=== PATIENT | female | born 1930 | race Caucasian/White ===

== ENCOUNTER 2017-08-15 17:37 | Inpatient (IN) | payer MEDICARE, BC ==
[2017-08-15 18:55] LABS: Hematocrit 31 % (35-47); Hemoglobin 10.3 g/dl (12.0-16.0); Mean Corpuscular HGB Conc 33 g/dl (31-36); Mean Corpuscular Hemoglobin 31 pg (27-31); Mean Corpuscular Volume 92 fL (80-97); Mean Platelet Volume 10 um3 (7.4-10.4); Red Blood Count 3.36 10^6/ul (4.0-5.4); Red Cell Distribution Width 15 % (10.5-15)
--- NOTE | 2017-08-15 19:03 | RAD ---
HISTORY: Fall, seizure COMPARISONS: November 28, 2016 TECHNIQUE: Multiple contiguous axial CT scans were obtained of the head without intravenous contrast. FINDINGS: HEMORRHAGE/INFARCT: There is no hemorrhage or acute infarct. MASSES/SHIFT: There is no mass or shift. EXTRA-AXIAL SPACES: There are no extra-axial fluid collections. SULCI AND VENTRICLES: There is diffuse and proportional enlargement of the sulci and ventricles. CEREBRUM: There is right parieto-occipital encephalomalacia consistent with remote infarct. There is hypoattenuation of the periventricular and supportive White matter BRAINSTEM: There are no focal parenchymal abnormalities. CEREBELLUM: There are no focal parenchymal abnormalities. VESSELS: The vessels are grossly normal. PARANASAL SINUSES: The paranasal sinuses are clear. ORBITS: The orbits are unremarkable. BONES AND SOFT TISSUE: No bone or soft tissue abnormalities are noted. OTHER: None IMPRESSION: NO ACUTE INTRACRANIAL PATHOLOGY. 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
[2017-08-15 19:04] LABS: BUN/Creatinine Ratio 27.9 (8-20); Calcium 10.2 mg/dL (8.6-10.3); EGFR African American 64.6 (>60); EGFR Non-African American 50.2 (>60); Globulin 5.7 g/dL (2-4); Magnesium 1.9 mg/dL (1.9-2.7); Total Bilirubin 0.3 mg/dL (0.2-1.0); Total Protein 8.7 g/dL (6.4-8.9)
--- NOTE | 2017-08-15 19:05 | RAD ---
HISTORY: Fall, seizure COMPARISONS: None TECHNIQUE: Multiple contiguous axial CT scans were obtained of the cervical spine without intravenous contrast, with coronal and sagittal multiplanar reformations. FINDINGS: BRAIN: The visualized brain is unremarkable CENTRAL CANAL: Evaluation of the central canal is limited on CT technique; however, there is no obvious canalicular mass or epidural hemorrhage. ALIGNMENT: The alignment is normal, without subluxation or dislocation. VERTEBRAL BODIES: There is diffuse osteopenia. There is no displaced fracture. JOINTS: There is diffuse facet hypertrophy. MUSCULATURE: Unremarkable INTERVERTEBRAL DISCS: There is diffuse loss of intervertebral disc height. AXIAL IMAGES: C2-C3: There is no osseous neural foraminal narrowing or central canal stenosis. C3-C4: There is no osseous neural foraminal narrowing or central canal stenosis. C4-C5: There is no osseous neural foraminal narrowing or central canal stenosis. C5-C6: There is no osseous neural foraminal narrowing or central canal stenosis. C6-C7: There is no osseous neural foraminal narrowing or central canal stenosis. C7-T1: There is no osseous neural foraminal narrowing or central canal stenosis. SOFT TISSUES: There is extensive biapical emphysematous change. The prevertebral soft tissues are normal. OTHER: None. IMPRESSION: 1. OSTEOPENIA. 2. DEGENERATIVE DISC DISEASE AND OSTEOARTHRITIS. 3. NO ACUTE OSSEOUS INJURY TO THE CERVICAL SPINE. 4. EMPHYSEMA
[2017-08-15 19:29] LABS: TSH (Thyroid Stimulating Horm) 2.85 mcIU/mL (0.34-5.60)
--- NOTE | 2017-08-15 19:47 | RAD ---
HISTORY: Left femur deformity COMPARISONS: None VIEWS: 5, frontal view the pelvis with frontal and crosstable lateral views of the left femur FINDINGS: BONE DENSITY: There is diffuse osteopenia. BONES: The patient is status post bilateral hip arthroplasty. There is a displaced periprosthetic fracture of the left femur with anterior angulation and lateral displacement. JOINTS: The patient is status post bilateral hip arthroplasty ALIGNMENT: There is no dislocation. SOFT TISSUES: Unremarkable. OTHER FINDINGS: None. IMPRESSION: 1. ANGULATED AND DISPLACED PERIPROSTHETIC FRACTURE OF THE LEFT FEMORAL DIAPHYSIS. 2. OSTEOPENIA. 3. STATUS POST BILATERAL HIP ARTHROPLASTY.
--- NOTE | 2017-08-15 19:49 | RAD ---
HISTORY: Left femur fracture COMPARISONS: None VIEWS: 2, Frontal and lateral views of the left knee FINDINGS: BONE DENSITY: There is diffuse osteopenia. BONES: There is no displaced fracture. JOINTS: There is mild medial and patellofemoral osteophytes. ALIGNMENT: There is no dislocation. SOFT TISSUES: Unremarkable. OTHER FINDINGS: None. IMPRESSION: OSTEOPENIA. NO ACUTE OSSEOUS INJURY. IF SYMPTOMS PERSIST, RECOMMEND REPEAT IMAGING.
--- NOTE | 2017-08-15 19:51 | ED ---
Magdy Durant Angela, scribed for Seven Monahan MD on 08/15/17 at 1759 . Lower Extremity - HPI Summary HPI Summary: This pt is a 87 y/o female [facility] c/o left upper leg pain s/p injury from falling. Pt reports that she does not remember falling today. Pt has a PMHx of seizure and is currently on seizure medications. Pt denies knee pain, left foot pain, abd pain, back pain, neck pain. She states her neurologist is Dr. Romero. Per EMS, pt's son reports that the pt was walking and probably had a seizure that caused her to fall. EMS applied a traction splint on the LLE TOWER HAND. - History of Current Complaint Chief Complaint: EDExtremityLower Stated Complaint: LT LEG INJURY Hx Obtained From: Patient Mechanism Of Injury: Fall From A Standing Position Onset/Duration: Still Present Pain Intensity: 0 Timing: Lasting Hours Location: Is Discrete @ - left upper leg Associated Signs And Symptoms: Negative: Knee Pain Aggravating Factor(s): Ambulation, Movement Alleviating Factor(s): Rest - Allergies/Home Medications Allergies/Adverse Reactions: Allergies Allergy/AdvReac Type Severity Reaction Status Date / Time Eggs or Egg-derived Products Allergy Intermediate GI Upset Verified 08/15/17 17: 51 Home Medications: Home Medications Digoxin TAB* [Lanoxin TAB*] 0.125 mg PO EVERY OTHER DAY 08/15/17 [History Confirmed 08/15/17] Digoxin TAB* [Lanoxin TAB*] 0.25 mg PO EVERY OTHER DAY 08/15/17 [History Confirmed 08/15/17] PMH/Surg Hx/FS Hx/Imm Hx Endocrine/Hematology History: Denies: Hx Diabetes Cardiovascular History: Reports: Hx Hypercholesterolemia, 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 pacer placement. cataract extraction. bilateral TKA Infectious Disease History: No Infectious Disease History: Denies: Traveled Outside the [place] in Last 30 Days - Family History Known Family History: Positive: Hypertension - Social History Alcohol Use: Unable to confirm Hx Substance Use: No Substance Use Type: Reports: None Hx Tobacco Use: Yes Smoking Status (MU): Former Smoker Review of Systems Negative: Fever, Chills Negative: Abdominal Pain Musculoskeletal: Other - left upper leg Negative: Other - back pain, neck pain, left foot pain Neurological: Other - possible seizure, per pt's son All Other Systems Reviewed And Are Negative: Yes Physical Exam - Summary Physical Exam Summary: Appearance: Well-appearing, Well-nourished. No acute distress. Skin: Warm Eyes: Normal. EOMI. ENT: Normal. No evidence of lateral tongue lesions. Neck: Supple, nontender. No midline cervical tenderness. Respiratory: Clear to auscultation. Normal lungs sounds. Cardiovascular: Normal heart sounds. Normal pulses in radial area bilaterally. Abdomen: Soft, nontender. Bowel: Present Musculoskeletal: tractor splint applied to the left lower extremity from the hip downward. There is no hip tenderness. Tenderness to palpation of the left femur. No tenderness to palpation of the left ankle and knee. Normal capillary refill to toes bilaterally. Neurological: Normal. Alert and oriented to self and place, not to time. Psychiatric: Normal Triage Information Reviewed: Yes Vital Signs On Initial Exam: Initial Vitals Temp Pulse Resp BP Pulse Ox 98.4 F 74 16 135/87 94 08/15/17 17:45 08/15/17 17:45 08/15/17 17:45 08/15/17 17:45 08/15/17 17:45 Vital Signs Reviewed: Yes Diagnostics - Vital Signs Vital Signs Temp Pulse Resp BP Pulse Ox 08/15/17 17:45 98.4 F 74 16 135/87 94 - Laboratory Lab Results: Lab Results 08/15/17 08/15/17 08/15/17 Range/Units 18:28 18:28 18:28 WBC 8.0 (3.5-10.8) 10^3/ul RBC 3.36 L (4.0-5.4) 10^6/ul Hgb 10.3 L (12.0-16.0) g/dl Hct 31 L (35-47) % MCV 92 (80-97) fL MCH 31 (27-31) pg MCHC 33 (31-36) g/dl RDW 15 (10.5-15) % Plt Count 173 (150-450) 10^3/ul MPV 10 (7.4-10.4) um3 Neut % (Auto) 80.9 (38-83) % Lymph % (Auto) 13.0 L (25-47) % Stark % (Auto) 4.9 (1-9) % Eos % (Auto) 0.7 (0-6) % Baso % (Auto) 0.5 (0-2) % Absolute Neuts (auto) 6.5 (1.5-7.7) 10^3/ul Absolute Lymphs (auto) 1.0 (1.0-4.8) 10^3/ul Absolute Monos (auto) 0.4 (0-0.8) 10^3/ul Absolute Eos (auto) 0.1 (0-0.6) 10^3/ul Absolute Basos (auto) 0 (0-0.2) 10^3/ul Absolute Nucleated RBC 0.02 10^3/ul Nucleated RBC % 0.2 INR (Anticoag Therapy) 0.91 (0.89-1.11) APTT 25.1 L (26.0-36.3) seconds Sodium 132 L (133-145) mmol/L Potassium 5.0 (3.5-5.0) mmol/L Chloride 104 (101-111) mmol/L Carbon Dioxide 26 (22-32) mmol/L Anion Gap 2 (2-11) mmol/L BUN 29 H (6-24) mg/dL Creatinine 1.04 H (0.51-0.95) mg/dL Est GFR ( Amer) 64.6 (>60) Est GFR (Non-Af Amer) 50.2 (>60) BUN/Creatinine Ratio 27.9 H (8-20) Glucose 104 H (70-100) mg/dL Lactic Acid (0.5-2.0) mmol/L Calcium 10.2 (8.6-10.3) mg/dL Magnesium 1.9 (1.9-2.7) mg/dL Total Bilirubin 0.30 (0.2-1.0) mg/dL AST 24 (13-39) U/L ALT 14 (7-52) U/L Alkaline Phosphatase 54 (34-104) U/L Total Protein 8.7 (6.4-8.9) g/dL Albumin 3.0 L (3.2-5.2) g/dL Globulin 5.7 H (2-4) g/dL Albumin/Globulin Ratio 0.5 L (1-3) TSH 2.85 (0.34-5.60) mcIU/mL Valproic Acid 30.0 L (50-100) mcg/mL 08/15/17 Range/Units 18:28 WBC (3.5-10.8) 10^3/ul RBC (4.0-5.4) 10^6/ul Hgb (12.0-16.0) g/dl Hct (35-47) % MCV (80-97) fL MCH (27-31) pg MCHC (31-36) g/dl RDW (10.5-15) % Plt Count (150-450) 10^3/ul MPV (7.4-10.4) um3 Neut % (Auto) (38-83) % Lymph % (Auto) (25-47) % Stark % (Auto) (1-9) % Eos % (Auto) (0-6) % Baso % (Auto) (0-2) % Absolute Neuts (auto) (1.5-7.7) 10^3/ul Absolute Lymphs (auto) (1.0-4.8) 10^3/ul Absolute Monos (auto) (0-0.8) 10^3/ul Absolute Eos (auto) (0-0.6) 10^3/ul Absolute Basos (auto) (0-0.2) 10^3/ul Absolute Nucleated RBC 10^3/ul Nucleated RBC % INR (Anticoag Therapy) (0.89-1.11) APTT (26.0-36.3) seconds Sodium (133-145) mmol/L Potassium (3.5-5.0) mmol/L Chloride (101-111) mmol/L Carbon Dioxide (22-32) mmol/L Anion Gap (2-11) mmol/L BUN (6-24) mg/dL Creatinine (0.51-0.95) mg/dL Est GFR ( Amer) (>60) Est GFR (Non-Af Amer) (>60) BUN/Creatinine Ratio (8-20) Glucose (70-100) mg/dL Lactic Acid 0.9 (0.5-2.0) mmol/L Calcium (8.6-10.3) mg/dL Magnesium (1.9-2.7) mg/dL Total Bilirubin (0.2-1.0) mg/dL AST (13-39) U/L ALT (7-52) U/L Alkaline Phosphatase (34-104) U/L Total Protein (6.4-8.9) g/dL Albumin (3.2-5.2) g/dL Globulin (2-4) g/dL Albumin/Globulin Ratio (1-3) TSH (0.34-5.60) mcIU/mL Valproic Acid (50-100) mcg/mL Result Diagrams: 08/15/17 18:28 08/15/17 18:28 Lab Statement: Any lab studies that have been ordered have been reviewed, and results considered in the medical decision making process. - Radiology Left femur XR Radiology Interpretation Completed By: Radiologist - pending official report from radiologist, please see [facility]. Pelvis XR Radiology Interpretation Completed By: Radiologist - pending official report from radiologist, please see [facility]. - CT CT Brain CT Interpretation: Positive (See Comments) - IMPRESSION: No acute intracranial pathology. Diffuse involutional change with chronic small vessel ischemic changes, and evidence of remote infarcts of the right parietal and occipital lobes. ED physician has reviewed this radiology report and agrees. CT Interpretation Completed By: Radiologist Cervical spine CT CT Interpretation: Positive (See Comments) - IMPRESSION: 1. Osteopenia. 2. Degenerative disc disease and osteoarthritis. 3. No acute osseous injury to the cervical spine. 4. Emphysema. ED physician has reviewed this radiology report and agrees. CT Interpretation Completed By: Radiologist Lower Extremity Course/Dx - Diagnoses Provider Diagnoses: Closed femur fracture - Physician Notifications Discussed Care Of Patient With: Jaylen Staley Time Discussed With Above Provider: 19:25 Instructed by Provider To: Other - I discussed the pt's case with Dr. Staley, orthopedist. [[id number]] I spoke with Dr. Arreola, hospitalist, and he has agreed to admit the pt. Discharge - Discharge Plan Condition: Stable Disposition: ADMITTED TO [facility] Referrals: Christa Ardon MD [Primary Care Provider] - The documentation as recorded by the Magdy parker Angela accurately reflects the service I personally performed and the decisions made by me, Seven Monahan MD.
[2017-08-15] MEDS ORDERED: Morphine INJ* 4 MG/ML 1 ML CARPUJECT IV ONE (20:16)
[2017-08-15] MEDS ORDERED: Ondansetron INJ* 2 MG/ML VIAL IV ONE (20:16)
[2017-08-15 20:30] LABS: Digoxin 0.9 ng/ml (0.8-2.0)
--- NOTE | 2017-08-15 20:50 | PN ---
Progress Note - Progress Note Date of Service: 08/15/17 Note: Ms. Nieves has a displaced periprosthetic femur fracture. The implant was [place] [address] Miguel Garíca. The implant looks stable and it looks like she fractured at the distal aspect of the stem. This will need surgery to stabilize the femur with a plate and screws. She is being admitted to the medical service and we'll do the surgery when she is medically optimized.
[2017-08-15] MEDS ORDERED: Ondansetron INJ* 2 MG/ML VIAL IV PRN (21:08)
[2017-08-15] MEDS ORDERED: oxyCODONE TAB* 5 MG TAB PO PRN (21:13)
[2017-08-15] MEDS ORDERED: Morphine INJ* 2 MG/ML 1 ML SYRINGE (TWO MG - NEW SYRINGE VERSION) IV PRN (21:13)
[2017-08-15] MEDS ORDERED: Valproic Acid IV(*) 500 MG in NS 0.9% 100 ML* 100 ML IVPB ONE (21:14)
[2017-08-15 21:47] LABS: Urine Bacteria 1+ (Absent); Urine Bilirubin Negative (Negative); Urine Glucose Negative (Negative); Urine Nitrite Negative (Negative)
--- NOTE | 2017-08-15 22:54 | HP ---
CC: Dr. Ardon * HISTORY AND PHYSICAL: DATE OF ADMISSION: 08/15/17 PRIMARY CARE PHYSICIAN: Dr. Ardon. CHIEF COMPLAINT: Fall, left-sided leg pain. HISTORY OF PRESENT ILLNESS: Ms. Nieves is an 87-year-old female with past medical history of seizure disorder, stroke, tachybrady syndrome with pacemaker placement, AFib not currently on anticoagulation, who presents to the hospital after a fall that was unwitnessed at home. History is limited from the patient as she likely has some underlying cognitive impairment. She states what she remembers is waking up this morning, getting up, getting dressed, walking into the kitchen. She recalls her son telling her to sit down and he would get her some food. She states the next thing she remembers she was on the ground with left leg pain and was unable to get up. She does not recall having any chest pain, shortness of breath, dizziness, fever, or chills recently. Denies any headache at this time. Does not think that she struck her head. She states she has a history of seizure disorder, cannot recall the last time she had a seizure. Unfortunately, I was unable to get in touch with the son to get the story from his perspective. However, Dr. Monahan in the emergency department mentioned that the son was concerned that the patient may have had a seizure, although again it does not seem that he witnessed her fall. In the emergency department, the patient was found to have a left periprosthetic fracture. Dr. Staley was consulted who will evaluate the patient in the morning and asked the hospitalist service to admit. PAST MEDICAL HISTORY: Seizure disorder, CVA, tachybrady syndrome with pacemaker placement, AFib not on anticoagulation apparently due to her seizure disorder. PAST SURGICAL HISTORY: Pacemaker placement, left total hip arthroplasty. HOME MEDICATIONS: 1. Depakote 500 mg by mouth 2 times daily. 2. Digoxin 0.25 mg alternating every other day with 0.125 mg. 3. Atenolol 12.5 mg in the morning and 25 mg by mouth at night. 4. Aspirin 81 mg by mouth daily. ALLERGIES: Patient has allergies to eggs or egg derived products. FAMILY HISTORY: Patient is unable to provide. SOCIAL HISTORY: Patient apparently has a long smoking history. Lives at home with her son. PHYSICAL EXAMINATION GENERAL: The patient is an elderly, frail appearing female, lying in bed, in no apparent distress. VITAL SIGNS: On admission, temperature 98.4, heart rate of 74, respiratory rate of 16, O2 saturation 94% on room air, blood pressure 135/87. HEENT: Head: Normocephalic, atraumatic. Eyes: Pupils equal, round, and reactive to light and accommodation. Anicteric sclerae. ENT: Dry mucous membranes. No cervical adenopathy. LUNGS: Clear to auscultation bilaterally. No wheezes, rales, or rhonchi. CARDIOVASCULAR: Regular rate and rhythm. S1 and S2 present. No murmurs, gallops, or rubs. ABDOMEN: Soft, nontender, nondistended. Bowel sounds positive. EXTREMITIES: No cyanosis, clubbing, or edema. Left lower extremity with a knee immobilizer in place. NEUROLOGIC: Patient is alert and oriented to self and hospital, told me that it was 2003, did note the month was August. No focal neurological deficits. DIAGNOSTIC STUDIES: EKG personally reviewed shows paced rhythm. CT of the brain shows no acute abnormalities but remote infarcts of the right parietal and occipital lobes. CT of the C-spine shows degenerative disk disease and osteopenia. No fractures. Pelvic x-ray shows an angulated and displaced periprosthetic fracture of the left femur. ASSESSMENT AND PLAN: Fall with left femur fracture and possible seizure in an 87- year-old female with a past medical history of seizure disorder, cerebrovascular accident, tachybrady syndrome with pacemaker placement and atrial fibrillation not currently on anticoagulation. 1. Fall, femur fracture. X-ray shows an angulated and displaced periprosthetic fracture. The patient has an immobilizer in place right now. The patient has no concerning EKG changes. No history of diabetes, congestive heart failure. The last echocardiogram we have on file showed some mild-to- moderate mitral and tricuspid regurgitation with a preserved EF. I do not think that the patient needs any additional testing prior to proceeding with surgery. We will write for analgesia and some light IV fluids overnight. We will make the patient n.p.o. after midnight. Dr. Staley was contacted by Dr. Monahan in the ED and will evaluate the patient in the morning. 2. Seizure disorder. It is unclear if the patient had a seizure. She seems alert and oriented at this time. Her valproic acid level is low at 30. I have a page out to Dr. Romero. For now, we will keep her on her Depakote 500 mg by mouth 2 times daily and give an additional 500 mg dose by IV right now. We will recheck a level in the morning. 3. History of cerebrovascular accident. Continue the patient on aspirin. 4. Atrial fibrillation. The patient is currently paced. We will continue beta - tamera and digoxin. Monitor the patient on telemetry. 5. DVT prophylaxis. Heparin subcu. 6. Code status. The patient is a DNR/DNI. This will need to be reversed for surgery. TIME SPENT: Total time spent on this admission, 50 minutes, with over half the time was spent [id number] with the patient in counseling and coordinating care. [id number]/[facility] #: [id number] HIGINIO
[2017-08-15] MEDS: NS 0.9% 1000 ML* 1,000 ML IV SCH (23:29)
[2017-08-15] MEDS: Heparin VIAL(*) 5000 UNITS/ML VIAL (FIVE THOUSAND) SUBCUT SCH (23:39)
[2017-08-15] MEDS: Divalproex DR TAB(*) 250 MG PO SCH (23:42)
[2017-08-16 05:02] LABS: Hematocrit 27 % (35-47); Mean Corpuscular HGB Conc 34 g/dl (31-36); Mean Corpuscular Hemoglobin 31 pg (27-31); Mean Corpuscular Volume 93 fL (80-97); Mean Platelet Volume 10 um3 (7.4-10.4); Red Cell Distribution Width 14 % (10.5-15); White Blood Count 7.9 10^3/ul (3.5-10.8)
[2017-08-16 05:18] LABS: BUN/Creatinine Ratio 26.2 (8-20); Calcium 9.5 mg/dL (8.6-10.3); EGFR African American 51.8 (>60); EGFR Non-African American 40.3 (>60)
[2017-08-16 05:23] LABS: Potassium 5.2 mmol/L (3.5-5.0)
[2017-08-16] MEDS: Heparin VIAL(*) 5000 UNITS/ML VIAL (FIVE THOUSAND) SUBCUT SCH ×3 (06:29→21:21)
[2017-08-16] MEDS ORDERED: Atenolol TAB* 25 MG PO SCH (09:00)
[2017-08-16] MEDS: Divalproex DR TAB(*) 250 MG PO SCH ×2 (09:23→21:19)
[2017-08-16] MEDS: Acetaminophen TAB* 325 MG PO PRN ×3 (09:24→21:23)
[2017-08-16] MEDS: Aspirin EC Low Dose* 81 MG TAB.EC PO SCH (09:24)
[2017-08-16] MEDS ORDERED: Insulin REGULAR(*) 1 UNITS UNIT IV PUSH ONE (09:45)
[2017-08-16] MEDS ORDERED: Dextrose 50% Syringe 50 ML* 25 GM/50 ML SYRINGE IV PUSH PRN (09:45)
[2017-08-16] MEDS: Atenolol TAB* 25 MG PO SCH ×2 (09:55→18:02)
[2017-08-16] MEDS ORDERED: Dextrose 50% Syringe 50 ML* 25 GM/50 ML SYRINGE IV PUSH ONE (09:58)
--- NOTE | 2017-08-16 09:59 | PN ---
Subjective Date of Service: 08/16/17 Interval History: Pt is feeling ok. She is upset she doesn't get food yet. She denies any pain at this time. No SOB. Objective Active Medications: Acetaminophen (Tylenol Tab*) 650 mg PO Q4H PRN PRN Reason: Mild Pain Last Admin: 08/16/17 09:24 Dose: 650 mg Aspirin (Aspirin Ec Low Dose*) 81 mg PO DAILY [facility] Last Admin: 08/16/17 09:24 Dose: 81 mg Atenolol (Tenormin Tab*) 25 mg PO QPM [facility] Atenolol (Tenormin Tab*) 12.5 mg PO QAM [facility] Last Admin: 08/16/17 09:55 Dose: Not Given Dextrose (D50w Syringe 50 Ml*) 25 gm IV PUSH ONCE PRN PRN Reason: FS < 60 Digoxin (Lanoxin Tab*) 0.25 mg PO EVERY OTHER DAY@1700 [facility] Digoxin (Lanoxin Tab*) 0.125 mg PO EVERY OTHER DAY@1700 [facility] Divalproex Sodium (Depakote Dr Tab(*)) 500 mg PO BID [facility] Last Admin: 08/16/17 09:23 Dose: 500 mg Heparin Sodium (Porcine) (Heparin Vial(*)) 5,000 units SUBCUT Q8HR [facility] Last Admin: 08/16/17 06:29 Dose: 5,000 units Sodium Chloride (Ns 0.9% 1000 Ml*) 1,000 mls @ 75 mls/hr IV PER RATE [facility] Last Admin: 08/15/17 23:29 Dose: 75 mls/hr Morphine Sulfate (Morphine Inj (Syringe)*) 2 mg IV Q2H PRN PRN Reason: SEVERE PAIN Ondansetron HCl (Zofran Inj*) 4 mg IV Q4H PRN PRN Reason: NAUSEA/VOMITING Oxycodone HCl (Roxycodone Tab*) 2.5 mg PO Q4H PRN PRN Reason: PAIN Vital Signs 08/15/17 08/15/17 08/15/17 21:33 22:00 22:13 Temperature Pulse Rate 60 59 64 Respiratory Rate Blood Pressure 105/56 116/61 (mmHg) O2 Sat by Pulse 94 96 96 Oximetry 08/15/17 08/15/17 08/15/17 22:30 23:00 23:01 Temperature Pulse Rate 61 63 68 Respiratory 17 18 15 Rate Blood Pressure 106/61 112/56 (mmHg) O2 Sat by Pulse 97 94 95 Oximetry 08/15/17 08/15/17 08/16/17 23:05 23:20 00:03 Temperature 98.2 F 96.6 F 96.6 F Pulse Rate 67 67 Respiratory 20 20 Rate Blood Pressure 112/64 112/64 (mmHg) O2 Sat by Pulse 96 96 Oximetry 08/16/17 08/16/17 08/16/17 00:19 04:19 07:14 Temperature 99.0 F Pulse Rate 67 61 Respiratory 20 14 14 Rate Blood Pressure 112/86 109/48 (mmHg) O2 Sat by Pulse 98 93 Oximetry 08/16/17 08/16/17 08/16/17 07:55 08:11 09:24 Temperature 97.8 F Pulse Rate 63 61 58 Respiratory Rate Blood Pressure 114/52 109/48 (mmHg) O2 Sat by Pulse 100 93 Oximetry 08/16/17 08/16/17 09:48 09:53 Temperature 98.1 F Pulse Rate 60 Respiratory Rate Blood Pressure 106/45 (mmHg) O2 Sat by Pulse 98 Oximetry Oxygen Devices in Use Now: Nasal Cannula - 2L Appearance: Elderly thin female sitting up in bed, NAD Eyes: No Scleral Icterus Ears/Nose/Mouth/Throat: Mucous Membranes Moist Respiratory: Symmetrical Chest Expansion and Respiratory Effort, Clear to Auscultation - few crackles RLL Cardiovascular: NL Sounds; No Murmurs; No JVD, RRR, No Edema Abdominal: NL Sounds; No Tenderness; No Distention Extremities: No Clubbing, Cyanosis, - - L LE shortened and externally rotated, in knee immobilizer Skin: No Rash or Ulcers, No Nodules or Sclerosis Neurological: - - slightly confused (stated left room but it was her son ), oriented to situation Result Diagrams: 08/16/17 04:39 08/16/17 04:39 Additional Lab and Data: Lab Results 08/15/17 08/15/17 08/15/17 Range/Units 18:28 18:28 18:28 WBC 8.0 (3.5-10.8) 10^3/ul RBC 3.36 L (4.0-5.4) 10^6/ul Hgb 10.3 L (12.0-16.0) g/dl Hct 31 L (35-47) % MCV 92 (80-97) fL MCH 31 (27-31) pg MCHC 33 (31-36) g/dl RDW 15 (10.5-15) % Plt Count 173 (150-450) 10^3/ul MPV 10 (7.4-10.4) um3 Neut % (Auto) 80.9 (38-83) % Lymph % (Auto) 13.0 L (25-47) % Castro % (Auto) 4.9 (1-9) % Eos % (Auto) 0.7 (0-6) % Baso % (Auto) 0.5 (0-2) % Absolute Neuts (auto) 6.5 (1.5-7.7) 10^3/ul Absolute Lymphs (auto) 1.0 (1.0-4.8) 10^3/ul Absolute Monos (auto) 0.4 (0-0.8) 10^3/ul Absolute Eos (auto) 0.1 (0-0.6) 10^3/ul Absolute Basos (auto) 0 (0-0.2) 10^3/ul Absolute Nucleated RBC 0.02 10^3/ul Nucleated RBC % 0.2 INR (Anticoag Therapy) 0.91 (0.89-1.11) APTT 25.1 L (26.0-36.3) seconds Sodium 132 L (133-145) mmol/L Potassium 5.0 (3.5-5.0) mmol/L Chloride 104 (101-111) mmol/L Carbon Dioxide 26 (22-32) mmol/L Anion Gap 2 (2-11) mmol/L BUN 29 H (6-24) mg/dL Creatinine 1.04 H (0.51-0.95) mg/dL Est GFR ( Amer) 64.6 (>60) Est GFR (Non-Af Amer) 50.2 (>60) BUN/Creatinine Ratio 27.9 H (8-20) Glucose 104 H (70-100) mg/dL Lactic Acid (0.5-2.0) mmol/L Calcium 10.2 (8.6-10.3) mg/dL Magnesium 1.9 (1.9-2.7) mg/dL Total Bilirubin 0.30 (0.2-1.0) mg/dL AST 24 (13-39) U/L ALT 14 (7-52) U/L Alkaline Phosphatase 54 (34-104) U/L Total Protein 8.7 (6.4-8.9) g/dL Albumin 3.0 L (3.2-5.2) g/dL Globulin 5.7 H (2-4) g/dL Albumin/Globulin Ratio 0.5 L (1-3) TSH 2.85 (0.34-5.60) mcIU/mL Valproic Acid 30.0 L (50-100) mcg/mL 08/15/17 Range/Units 18:28 WBC (3.5-10.8) 10^3/ul RBC (4.0-5.4) 10^6/ul Hgb (12.0-16.0) g/dl Hct (35-47) % MCV (80-97) fL MCH (27-31) pg MCHC (31-36) g/dl RDW (10.5-15) % Plt Count (150-450) 10^3/ul MPV (7.4-10.4) um3 Neut % (Auto) (38-83) % Lymph % (Auto) (25-47) % Castro % (Auto) (1-9) % Eos % (Auto) (0-6) % Baso % (Auto) (0-2) % Absolute Neuts (auto) (1.5-7.7) 10^3/ul Absolute Lymphs (auto) (1.0-4.8) 10^3/ul Absolute Monos (auto) (0-0.8) 10^3/ul Absolute Eos (auto) (0-0.6) 10^3/ul Absolute Basos (auto) (0-0.2) 10^3/ul Absolute Nucleated RBC 10^3/ul Nucleated RBC % INR (Anticoag Therapy) (0.89-1.11) APTT (26.0-36.3) seconds Sodium (133-145) mmol/L Potassium (3.5-5.0) mmol/L Chloride (101-111) mmol/L Carbon Dioxide (22-32) mmol/L Anion Gap (2-11) mmol/L BUN (6-24) mg/dL Creatinine (0.51-0.95) mg/dL Est GFR ( Amer) (>60) Est GFR (Non-Af Amer) (>60) BUN/Creatinine Ratio (8-20) Glucose (70-100) mg/dL Lactic Acid 0.9 (0.5-2.0) mmol/L Calcium (8.6-10.3) mg/dL Magnesium (1.9-2.7) mg/dL Total Bilirubin (0.2-1.0) mg/dL AST (13-39) U/L ALT (7-52) U/L Alkaline Phosphatase (34-104) U/L Total Protein (6.4-8.9) g/dL Albumin (3.2-5.2) g/dL Globulin (2-4) g/dL Albumin/Globulin Ratio (1-3) TSH (0.34-5.60) mcIU/mL Valproic Acid (50-100) mcg/mL Assess/Plan/Problems-Billing Ms Nieves is an 87 yo F who has a h/o afib (not on anticoagulation), seizure disorder and likely mild cognitive impairment who presented to the ER after falling at home and was found to have a left periprosthetic femur fracture. - Patient Problems (1) Periprosthetic fracture of shaft of femur Current Visit: Yes Status: Acute Code(s): M97.8XXA - PERIPROSTH FRACTURE AROUND OTHER INTERNAL PROSTH JOINT, INIT; Z96.649 - PRESENCE OF UNSPECIFIED ARTIFICIAL HIP JOINT SNOMED Code(s): 164890217 Comment: The patient was seen by Dr. Staley last evening. She will need surgery and is medically optimized and ready to go today. Continue pain control. She will likely need STR prior to going back home. (2) Hyperkalemia Current Visit: Yes Status: Acute Code(s): E87.5 - HYPERKALEMIA SNOMED Code (s): 31135739 Comment: Likely related to slightly worsened renal function. I have ordered K50 and regular insulin 10 units IV to treat the hyperkalemia. Continue IVF hydration. (3) JOLENE (acute kidney injury) Current Visit: Yes Status: Acute Code(s): N17.9 - ACUTE KIDNEY FAILURE, UNSPECIFIED SNOMED Code(s): 70152752 Comment: Creatinine actually slightly worse today than yesterday. She did not eat/drink anything since yesterday around 2pm. She had hyaline casts in her urine which is likely related to volume depletion. Will get follow up labs this evening. (4) Seizure disorder Current Visit: Yes Status: Acute Code(s): G40.909 - EPILEPSY, UNSP, NOT INTRACTABLE, WITHOUT STATUS EPILEPTICUS SNOMED Code(s): 289917331 Comment: Continue depakote. (5) Paroxysmal a-fib Current Visit: Yes Status: Chronic Code(s): I48.0 - PAROXYSMAL ATRIAL FIBRILLATION SNOMED Code(s): 512817645 Comment: Currently in NSR. Pt has pacer. Continue digoxin. Hold parameters placed on atenolol. Pt is not on anticoagulation at baseline. (6) Hypertension Current Visit: Yes Status: Chronic Code(s): I10 - ESSENTIAL (PRIMARY) HYPERTENSION SNOMED Code(s): 62698225 Comment: SBP 110s-120s. Continue atenolol. (7) DVT prophylaxis Current Visit: Yes Status: Acute Code(s): PGV7699 - SNOMED Code(s): 727993505 Comment: SQ heparin (8) DNR (do not resuscitate) Current Visit: Yes Status: Chronic
[2017-08-16] MEDS ORDERED: Dextrose 50% VIAL 50 ml IV PUSH ONE (10:10)
--- NOTE | 2017-08-16 11:25 | RAD ---
INDICATION: Hypoxia. COMPARISON: Comparison is made with a prior chest x-ray study from June 12, 2016. TECHNIQUE: A portable view of the chest was obtained. FINDINGS: There is a dual-chamber has been are present. The heart appears mildly enlarged and unchanged from the prior exam. There is mild prominence of the interstitial markings with more focal infiltrate at the right lung base suggestive of pneumonia. IMPRESSION: RIGHT BASILAR INFILTRATE MOST CONSISTENT WITH PNEUMONIA. RECOMMEND FOLLOW-UP CHEST X-RAYS TO RESOLUTION.
--- NOTE | 2017-08-16 11:53 | HP ---
Amended report to enter cosigning physician on report. DATE OF ADMISSION: 08/15/2017. This is a preoperative exam. Dr. Staley will be operating when patient is medically optimized. ATTENDING SURGEON: Dr. Jaylen Staley* (dictated by BHARGAV Bill). CHIEF COMPLAINT: Displaced periprosthetic femur fracture on the left side. HISTORY OF PRESENT ILLNESS: Ms. Nieves is an 87-year-old female brought in by ambulance to [facility] ED on 08/15/17 complaining of left upper leg / hip pain after falling. Fall occurred at home likely due to seizure as reported by her son. He did not witness, but did hear her fall. The patient does not remember the fall herself. She does have a past medical history of seizures and is on seizure medication, generally well-controlled. Her last seizure was one month ago. Her neurologist is Dr. Romero. She was seen By Orthopedic Surgeon Dr. Staley who confirmed a left periprosthetic femur fracture at the distal aspect of the stem with implant appearing stable. Implant [place] [address] Miguel García. Today, she denies any hip pain, leg pain, knee pain, and back pain. She denies any loss of sensation. The patient has had three previous hip fractures due to falls, one on the right and two on the left, all of which were uncomplicated. She has no clotting or excessive bleeding history. She takes aspirin but no other anticoagulant at home , she is currently on heparin. 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 She does have a history of seizures. Had two strokes within the past two years with no residual symptoms. PAST SURGICAL HISTORY: Appendectomy; pacemaker placement; cataract extraction; bilateral total knee replacement; one right hip surgery, two left hip surgeries , son and patient unsure of the exact procedure. MEDICATIONS: 1. Aspirin 81 mg p.o. daily. 2. Atenolol 25 mg q.p.m. 3. Atenolol 12.5 mg q.a.m. 4. Depakote DR 250 mg, take 500 mg p.o. b.i.d. 5. Digoxin 0.25 mg every other day. 6. Digoxin 0.125 mg every other day. 7. For pain, she is also taking acetaminophen 650 mg p.o. q.4 hours prn, Morphine Sulfate 2 mg IV q.2 hours prn, Oxycodone 2.5 mg q.4 hours prn. 8. Zofran 4 mg IV q.4 hours prn. 9. Heparin 5000 units subcu q.8 hours. Today her Atenolol was held due to a low blood pressure. ALLERGIES: The patient denies any allergies. Chart confirms EGG ALLERGY with reaction of GI upset. FAMILY HISTORY: Positive only for hypertension. SOCIAL HISTORY: The patient does not drink alcohol. She does not use drugs. She is a former smoker, but no longer smokes. REVIEW OF SYSTEMS: General: The patient denies fevers and chills. Has no known anesthesia problems and has had multiple surgeries. HEENT: Denies any headaches, dizziness, lightheadedness. Cardiothoracic: Negative for chest pain , negative for edema, negative for irregular beats. Has a pacemaker. Pulmonary : Negative for shortness of breath, asthma or COPD. GI: No nausea, vomiting, diarrhea; does have a history of GERD. : No urinary frequency, no urinary dysuria. Musculoskeletal: No back pain, no knee pain. Does not complain of current left hip pain. Does have a history of multiple hip fractures, one right now, two hip fractures on the left, one femur fracture on the left. Neuro : No paresthesias or numbness; does have a history of stroke, does have a history of seizures. Integumentary: No rashes or lesions. Endocrine: No diabetes, no thyroid issues. Hematology: No history of blood clots or excessive bleeding. PHYSICAL EXAMINATION GENERAL: Alert and oriented 87-year-old in no acute distress. She has an appropriate mood and affect. She communicates well. VITAL SIGNS: Temperature 98.1, pulse rate 60, oxygen saturation 98, blood pressure 106/45. HEENT: Normocephalic, atraumatic. The patient is hard of hearing. Has few teeth, no dentures. CARDIO: Regular rate and rhythm, S1, S2. No murmur. The patient does have a pacemaker. No pedal edema. PULMONARY: Normal effort of breathing. No obvious wheezes, rales or rhonchi. MUSCULOSKELETAL: Left lower extremity it shortened and externally rotated. Immobilizer in place. The patient has good dorsiflexion and plantarflexion bilaterally. She has an obvious deformity of the left proximal femur. NEUROLOGIC: Sensation is intact distally in the left lower extremity to light touch. VASCULAR: The patient has 2+ dorsalis pedis and posterior tibial pulses bilaterally, negative Obinna's sign bilaterally. Brisk capillary refill to toes bilaterally. PSYCHIATRIC: Normal affect. Carries on appropriate conversation IMPRESSION: Left periprosthetic femur fracture. PLAN: Surgical stabilization of left periprosthetic femur fracture with plates and screws by Dr. Staley. The patient has been seen and cleared for surgery by the Hospitalist team. A chest x-ray has been done showing possible RLL infiltrate. Her potassium and creatinine have become mildly elevated. Upon discussion with Dr. Staley he would prefer to postpone surgery until patient is medically optimized. Her pneumonia will be treated with antibiotics, she will be fluids resuscitated. We are hopeful her potassium, creatinine, volume status and pneumonia may improve prior to patient being brought to the OR. The patient's son, Ed was present and able to talk with me to help to complete this H&P and confirm history. TANYA SCOTT, BHARGAV [id number]/CPS #: [id number] I saw Ms. Nieves yesterday together with Tanya Scott. I spoke with Dr. Villa. There is a question of whether she has a pneumonia and her Cr has elevated slightly. She got blood yesterday as well. She is going to be further medically optimized. We will monitor how she is doing over the next couple of days and if she stablizes and is doing well from a medical standpoint we will stabilize the femur. HIGINIO
[2017-08-16] MEDS: NS 0.9% 1000 ML* 1,000 ML IV SCH (13:19)
[2017-08-16] MEDS: cefTRIAXone VIAL(*) 1,000 MG in NS 0.9% 50 ML* 50 ML IVPB SCH (13:19)
[2017-08-16] MEDS: Azithromycin IV(*) 500 MG in NS 0.9% 250 ML* 250 ML IVPB SCH (13:52)
[2017-08-16 16:20] LABS: BUN/Creatinine Ratio 23.1 (8-20); Blood Urea Nitrogen 33 mg/dL (6-24); CO2 Carbon Dioxide 27 mmol/L (22-32); Calcium 9.1 mg/dL (8.6-10.3); Chloride 108 mmol/L (101-111); EGFR African American 44.7 (>60); EGFR Non-African American 34.8 (>60); Glucose 103 mg/dL (70-100); Sodium 135 mmol/L (133-145)
[2017-08-16 16:21] LABS: Potassium 5.1 mmol/L (3.5-5.0)
--- NOTE | 2017-08-16 17:41 | PN ---
Progress Note - Progress Note Date of Service: 08/16/17 SOAP: Subjective: []Patient was seen at bedside for Preoperative H&P but due to findings surgery is postponed at this time. She has no complaints and was not in any pain. Objective: [] Vital Signs Temp 97.6 F 08/16/17 16:00 Pulse 64 08/16/17 16:00 Resp 12 08/16/17 16:00 BP 110/50 08/16/17 16:00 Pulse Ox 98 08/16/17 16:00 Intake & Output 08/15/17 08/16/17 08/16/17 18:59 06:59 18:59 Intake Total 100 1355 Output Total 100 251 Balance 0 1104 Weight 85 lb 84 lb 15.811 oz Intake: IV Fluids 1115 NS (0.9%) 1115 IVPB 60 NS (0.9%) 60 Oral 100 180 Output: Urine 100 250 Residual 1 Shelby 1 Other: Estimated Void Small # Voids 1 Laboratory Last Values WBC 7.9 10^3/ul (3.5-10.8) 08/16/17 04:39 RBC 2.90 10^6/ul (4.0-5.4) L 08/16/17 04:39 Hgb 9.0 g/dl (12.0-16.0) L 08/16/17 04:39 Hct 27 % (35-47) L 08/16/17 04:39 MCV 93 fL (80-97) 08/16/17 04:39 MCH 31 pg (27-31) 08/16/17 04:39 MCHC 34 g/dl (31-36) 08/16/17 04:39 RDW 14 % (10.5-15) 08/16/17 04:39 Plt Count 141 10^3/ul (150-450) L 08/16/17 04:39 MPV 10 um3 (7.4-10.4) 08/16/17 04:39 Neut % (Auto) 68.9 % (38-83) 08/16/17 04:39 Lymph % (Auto) 24.7 % (25-47) L 08/16/17 04:39 [place] % (Auto) 6.0 % (1-9) 08/16/17 04:39 Eos % (Auto) 0.2 % (0-6) 08/16/17 04:39 Baso % (Auto) 0.2 % (0-2) 08/16/17 04:39 Absolute Neuts (auto) 5.5 10^3/ul (1.5-7.7) 08/16/17 04:39 Absolute Lymphs (auto) 2.0 10^3/ul (1.0-4.8) 08/16/17 04:39 Absolute Monos (auto) 0.5 10^3/ul (0-0.8) 08/16/17 04:39 Absolute Eos (auto) 0 10^3/ul (0-0.6) 08/16/17 04:39 Absolute Basos (auto) 0 10^3/ul (0-0.2) 08/16/17 04:39 Absolute Nucleated RBC 0.01 10^3/ul 08/16/17 04:39 Nucleated RBC % 0.1 08/16/17 04:39 INR (Anticoag Therapy) 0.91 (0.89-1.11) 08/15/17 18:28 APTT 25.1 seconds (26.0-36.3) L 08/15/17 18:28 Sodium 135 mmol/L (133-145) 08/16/17 15:40 Potassium 5.1 mmol/L (3.5-5.0) H 08/16/17 15:40 Chloride 108 mmol/L (101-111) 08/16/17 15:40 Carbon Dioxide 27 mmol/L (22-32) 08/16/17 15:40 Anion Gap Not Reportable 08/16/17 15:40 BUN 33 mg/dL (6-24) H 08/16/17 15:40 Creatinine 1.43 mg/dL (0.51-0.95) H 08/16/17 15:40 Est GFR ( Amer) 44.7 (>60) 08/16/17 15:40 Est GFR (Non-Af Amer) 34.8 (>60) 08/16/17 15:40 BUN/Creatinine Ratio 23.1 (8-20) H 08/16/17 15:40 Glucose 103 mg/dL (70-100) H 08/16/17 15:40 POC Glucose (mg/dL) 120 mg/dL (70-100) H 08/16/17 12:19 Lactic Acid 0.9 mmol/L (0.5-2.0) 08/15/17 18:28 Calcium 9.1 mg/dL (8.6-10.3) 08/16/17 15:40 Magnesium 1.9 mg/dL (1.9-2.7) 08/15/17 18:28 Total Bilirubin 0.30 mg/dL (0.2-1.0) 08/15/17 18:28 AST 24 U/L (13-39) 08/15/17 18:28 ALT 14 U/L (7-52) 08/15/17 18:28 Alkaline Phosphatase 54 U/L (34-104) 08/15/17 18:28 Total Protein 8.7 g/dL (6.4-8.9) 08/15/17 18:28 Albumin 3.0 g/dL (3.2-5.2) L 08/15/17 18:28 Globulin 5.7 g/dL (2-4) H 08/15/17 18:28 Albumin/Globulin Ratio 0.5 (1-3) L 08/15/17 18:28 TSH 2.85 mcIU/mL (0.34-5.60) 08/15/17 18:28 Urine Color Yellow 08/15/17 21:05 Urine Appearance Cloudy 08/15/17 21:05 Urine pH 6.0 (5-9) 08/15/17 21:05 Ur Specific [place] 1.013 (1.010-1.030) 08/15/17 21:05 Urine Protein Negative (Negative) 08/15/17 21:05 Urine Ketones Negative (Negative) 08/15/17 21:05 Urine Blood 1+ (Negative) H 08/15/17 21:05 Urine Nitrate Negative (Negative) 08/15/17 21:05 Urine Bilirubin Negative (Negative) 08/15/17 21:05 Urine Urobilinogen Negative (Negative) 08/15/17 21:05 Ur Leukocyte Esterase 1+ (Negative) H 08/15/17 21:05 Urine WBC (Auto) Trace(0-5/hpf) (Absent) 08/15/17 21:05 Urine RBC (Auto) Trace(0-2/hpf) (Absent) 08/15/17 21:05 Ur Squamous Epith Cells Present (Absent) H 08/15/17 21:05 Ur Renal Epithelial Cell Present (Absent) H 08/15/17 21:05 Urine Bacteria 1+ (Absent) H 08/15/17 21:05 Hyaline Casts Present (Absent) H 08/15/17 21:05 Urine Glucose Negative (Negative) 08/15/17 21:05 Digoxin 0.9 ng/ml (0.8-2.0) 08/15/17 18:28 Valproic Acid 81.0 mcg/mL (50-100) 08/16/17 04:39 General: No acute distress. MSK: LLE shortened and externally rotated. Sensation is intact distally. 2+ DP and PT pulses. DF and PF intact. Assessment: [] Displaced left femur fracture Plan: []Due to potassium elevation, creatinine elevation and possible pneumonia Dr. Staley has elected to post-pone surgery. She will receive fluid resuscitation and antibiotics. She will be managed by the hospitalist team at this time until medically optimized for surgery.
[2017-08-16] MEDS: Digoxin TAB* 0.25 MG PO SCH (18:01)
[2017-08-16] MEDS ORDERED: Polyethylene Glycol 3350* 17 GM PACKET PO PRN (21:07)
[2017-08-16] MEDS ORDERED: Docusate CAP* 100 MG PO PRN (21:07)
[2017-08-16] MEDS ORDERED: Magnesium Hydroxide LIQ* 30 ML UDC PO PRN (21:07)
[2017-08-17] MEDS: NS 0.9% 1000 ML* 1,000 ML IV SCH (03:24)
[2017-08-17 04:50] LABS: Hematocrit 21 % (35-47); Hemoglobin 7.2 g/dl (12.0-16.0); Mean Corpuscular HGB Conc 34 g/dl (31-36); Mean Corpuscular Hemoglobin 31 pg (27-31); Mean Corpuscular Volume 93 fL (80-97); Mean Platelet Volume 10 um3 (7.4-10.4); Red Blood Count 2.32 10^6/ul (4.0-5.4); Red Cell Distribution Width 15 % (10.5-15); White Blood Count 5.3 10^3/ul (3.5-10.8)
[2017-08-17 05:04] LABS: Blood Urea Nitrogen 32 mg/dL (6-24); CO2 Carbon Dioxide 29 mmol/L (22-32); Calcium 8.6 mg/dL (8.6-10.3); Chloride 108 mmol/L (101-111); EGFR African American 46.2 (>60); EGFR Non-African American 35.9 (>60); Glucose 87 mg/dL (70-100); Sodium 136 mmol/L (133-145)
[2017-08-17] MEDS: Heparin VIAL(*) 5000 UNITS/ML VIAL (FIVE THOUSAND) SUBCUT SCH ×3 (05:42→21:47)
[2017-08-17] MEDS: Acetaminophen TAB* 325 MG PO PRN ×3 (05:43→17:39)
[2017-08-17] MEDS ORDERED: NS 0.9% 500 ML* 500 ML IV ONE (08:03)
--- NOTE | 2017-08-17 08:06 | PN ---
Progress Note - Progress Note Date of Service: 08/17/17 Note: Please see my addendum to Funmi Scott's note yesterday.
[2017-08-17] MEDS ORDERED: Divalproex DR TAB(*) 500 MG PO SCH (09:00)
[2017-08-17] MEDS: Atenolol TAB* 25 MG PO SCH ×2 (09:05→17:37)
[2017-08-17] MEDS: Aspirin EC Low Dose* 81 MG TAB.EC PO SCH (09:26)
[2017-08-17] MEDS: cefTRIAXone VIAL(*) 1,000 MG in NS 0.9% 50 ML* 50 ML IVPB SCH (12:56)
--- NOTE | 2017-08-17 13:20 | PN ---
Progress Note - Progress Note Date of Service: 08/17/17 SOAP: Subjective: 87 y/o female with L periprosthetic femur fracture. Patient resting in bed comfortably, denies pain, reports feeling tired. This AM, was noted by nurse to have ? absence seizure, when became uncommunicative for short period of time. Neurology following. VSS overnight, afebrile. Objective: General- Well appearing, NAD, sleeping in bed, easily rousable MSK- + DF/PF LLE, sensation grossly intact to light touch, immobilizer in place, PT 2+ b/l, L leg externally rotated. Vital Signs Temp 98.0 F 08/17/17 07:46 Pulse 60 08/17/17 09:25 Resp 16 08/17/17 08:00 BP 106/46 08/17/17 09:25 Pulse Ox 92 08/17/17 07:46 Intake & Output 08/16/17 08/17/17 08/17/17 18:59 06:59 18:59 Intake Total 1795 1196 Output Total 251 500 Balance 1544 696 Intake: IV Fluids 1115 936 NS (0.9%) 1115 936 IVPB 60 NS (0.9%) 60 Oral 620 260 Output: Urine 250 Shelby 500 Residual 1 Shelby 1 Assessment: Stable 87 y/o female with L periprosthetic femur fracture. Plan: - Discussed with Dr Summers- Patient likely to be medically optimized Sunday. - PNA- Drop in O2, XRay- right infiltrate consistent with PNA. Ceftria, azithro IV - Possible UTI, discussed with hospitalists. - Continue leg immobilizer, currently in place. - Possible OR sat or sun, waiting on clearance. - Continue to monitor KF, K+. - H&H drop- likely dilutional, transfusion per hosp. - Neurology following for possible absence seizures, depakote levels being monitored. Active Medications Generic Name Dose Route Start Last Admin Trade Name Freq PRN Reason Stop Dose Admin Acetaminophen 650 mg 08/15/17 21:08 08/17/17 10:33 Tylenol Tab* PO 650 mg Q4H PRN Administration Mild Pain Aspirin 81 mg 08/16/17 09:00 08/17/17 09:26 Aspirin Ec Low Dose* PO 81 mg DAILY MAKEDA Administration Atenolol 25 mg 08/16/17 18:00 08/16/17 18:02 Tenormin Tab* PO 25 mg QPM MAKEDA Administration Atenolol 12.5 mg 08/16/17 09:40 08/17/17 09:05 Tenormin Tab* PO Not Given QAM MAKEDA Digoxin 0.25 mg 08/16/17 17:00 08/16/17 18:01 Lanoxin Tab* PO 0.25 mg EVERY OTHER DAY@1700 MAKEDA Administration Digoxin 0.125 mg 08/17/17 17:00 Lanoxin Tab* PO EVERY OTHER DAY@1700 MAKEDA Divalproex Sodium 750 mg 08/16/17 21:00 08/16/17 21:19 Depsunshine [place] Tab(*) PO 750 mg BEDTIME MAKEDA Administration Divalproex Sodium 500 mg 08/17/17 09:00 08/17/17 09:26 Depsunshine [place] Tab(*) PO 500 mg DAILY MAKEDA Administration Docusate Sodium 100 mg 08/16/17 21:07 08/16/17 21:19 Colace Cap* PO 100 mg BID PRN Administration CONSTIPATION Heparin Sodium (Porcine) 5,000 units 08/15/17 22:00 08/17/17 05:42 Heparin Vial(*) SUBCUT 5,000 units Q8HR MAKEDA Administration Sodium Chloride 1,000 mls @ 75 mls/hr 08/15/17 21:15 08/17/17 03:24 Ns 0.9% 1000 Ml* IV 75 mls/hr PER RATE MAKEDA Administration Ceftriaxone Sodium 1,000 mg/ 50 mls @ 200 mls/hr 08/16/17 13:00 08/17/17 12: 56 Sodium Chloride IVPB 200 mls/hr Q24H MAKEDA Administration Azithromycin 500 mg/ Sodium 250 mls @ 250 mls/hr 08/16/17 13:00 08/16/17 13: 52 Chloride IVPB 250 mls/hr Q24H MAKEDA Administration Magnesium Hydroxide 30 ml 08/16/17 21:07 08/16/17 21:20 Milk Of Magnesia Liq* PO 30 ml Q6H PRN Administration CONSTIPATION Morphine Sulfate 2 mg 08/15/17 21:13 Morphine Inj (Syringe)* IV Q2H PRN SEVERE PAIN Ondansetron HCl 4 mg 08/15/17 21:08 Zofran Inj* IV Q4H PRN NAUSEA/VOMITING Oxycodone HCl 2.5 mg 08/15/17 21:13 Roxycodone Tab* PO Q4H PRN PAIN Polyethylene Glycol/Electrolytes 17 gm 08/16/17 21:07 Miralax* PO DAILY PRN CONSTIPATION Laboratory Results - last 24 hr 08/16/17 08/16/17 08/17/17 12:19 15:40 04:28 WBC 5.3 RBC 2.32 L Hgb 7.2 L Hct 21 L MCV 93 MCH 31 MCHC 34 RDW 15 Plt Count 119 L MPV 10 Neut % (Auto) 62.4 Lymph % (Auto) 26.1 [place] % (Auto) 6.8 Eos % (Auto) 4.0 Baso % (Auto) 0.7 Absolute Neuts (auto) 3.3 Absolute Lymphs (auto) 1.4 Absolute Monos (auto) 0.4 Absolute Eos (auto) 0.2 Absolute Basos (auto) 0 Absolute Nucleated RBC 0 Nucleated RBC % 0 Sodium 135 Potassium 5.1 H Chloride 108 Carbon Dioxide 27 Anion Gap Not Reportable BUN 33 H Creatinine 1.43 H Est GFR ( Amer) 44.7 Est GFR (Non-Af Amer) 34.8 BUN/Creatinine Ratio 23.1 H Glucose 103 H POC Glucose (mg/dL) 120 H Calcium 9.1 Valproic Acid Blood Type Antibody Screen 08/17/17 08/17/17 08/17/17 04:28 04:28 06:37 WBC RBC Hgb Hct MCV MCH MCHC RDW Plt Count MPV Neut % (Auto) Lymph % (Auto) [place] % (Auto) Eos % (Auto) Baso % (Auto) Absolute Neuts (auto) Absolute Lymphs (auto) Absolute Monos (auto) Absolute Eos (auto) Absolute Basos (auto) Absolute Nucleated RBC Nucleated RBC % Sodium 136 Potassium TNP 5.3 H Chloride 108 Carbon Dioxide 29 Anion Gap Not Reportable BUN 32 H Creatinine 1.39 H Est GFR ( Amer) 46.2 Est GFR (Non-Af Amer) 35.9 BUN/Creatinine Ratio 23.0 H Glucose 87 POC Glucose (mg/dL) Calcium 8.6 Valproic Acid 114.0 H Blood Type A Positive Antibody Screen Negative
[2017-08-17] MEDS: Azithromycin IV(*) 500 MG in NS 0.9% 250 ML* 250 ML IVPB SCH (13:23)
[2017-08-17] MEDS: Digoxin TAB* 0.125 MG PO SCH (17:38)
[2017-08-17] MEDS: Divalproex DR TAB(*) 250 MG PO SCH (20:11)
--- NOTE | 2017-08-17 22:12 | PN ---
Subjective Date of Service: 08/17/17 Interval History: Pain with transferring side to side. Afebrile, No cough, denies SOB. Transient AMS noted during inerview, possible partial seizure? hgb down to 7.2 from 9.0 from 10.3. No e/o GI bleed. Objective Active Medications: Acetaminophen (Tylenol Tab*) 650 mg PO Q4H PRN PRN Reason: Mild Pain Last Admin: 08/17/17 17:39 Dose: 650 mg Aspirin (Aspirin Ec Low Dose*) 81 mg PO DAILY [facility] Last Admin: 08/17/17 09:26 Dose: 81 mg Atenolol (Tenormin Tab*) 25 mg PO QPM [facility] Last Admin: 08/17/17 17:37 Dose: 25 mg Atenolol (Tenormin Tab*) 12.5 mg PO QAM [facility] Last Admin: 08/17/17 09:05 Dose: Not Given Digoxin (Lanoxin Tab*) 0.25 mg PO EVERY OTHER DAY@1700 [facility] Last Admin: 08/16/17 18:01 Dose: 0.25 mg Digoxin (Lanoxin Tab*) 0.125 mg PO EVERY OTHER DAY@1700 [facility] Last Admin: 08/17/17 17:38 Dose: 0.125 mg Divalproex Sodium (Depakote Dr Tab(*)) 750 mg PO BEDTIME [facility] Last Admin: 08/17/17 20:11 Dose: 750 mg Divalproex Sodium (Depakote Dr Tab(*)) 500 mg PO DAILY [facility] Last Admin: 08/17/17 09:26 Dose: 500 mg Docusate Sodium (Colace Cap*) 100 mg PO BID PRN PRN Reason: CONSTIPATION Last Admin: 08/16/17 21:19 Dose: 100 mg Heparin Sodium (Porcine) (Heparin Vial(*)) 5,000 units SUBCUT Q8HR [facility] Last Admin: 08/17/17 21:47 Dose: 5,000 units Sodium Chloride (Ns 0.9% 1000 Ml*) 1,000 mls @ 75 mls/hr IV PER RATE [facility] Last Admin: 08/17/17 03:24 Dose: 75 mls/hr Ceftriaxone Sodium 1,000 mg/ (Sodium Chloride) 50 mls @ 200 mls/hr IVPB Q24H [facility] Last Admin: 08/17/17 12:56 Dose: 200 mls/hr Azithromycin 500 mg/ Sodium (Chloride) 250 mls @ 250 mls/hr IVPB Q24H [facility] Last Admin: 08/17/17 13:23 Dose: 250 mls/hr Magnesium Hydroxide (Milk Of Magnpietro Liq*) 30 ml PO Q6H PRN PRN Reason: CONSTIPATION Last Admin: 08/16/17 21:20 Dose: 30 ml Morphine Sulfate (Morphine Inj (Syringe)*) 2 mg IV Q2H PRN PRN Reason: SEVERE PAIN Ondansetron HCl (Zofran Inj*) 4 mg IV Q4H PRN PRN Reason: NAUSEA/VOMITING Oxycodone HCl (Roxycodone Tab*) 2.5 mg PO Q4H PRN PRN Reason: PAIN Polyethylene Glycol/Electrolytes (Miralax*) 17 gm PO DAILY PRN PRN Reason: CONSTIPATION Vital Signs 08/16/17 08/17/17 08/17/17 23:18 03:22 07:46 Temperature 98.2 F 98.6 F 98.0 F Pulse Rate 61 63 60 Respiratory 16 16 14 Rate Blood Pressure 94/51 100/51 90/34 (mmHg) O2 Sat by Pulse 92 93 92 Oximetry 08/17/17 08/17/17 08/17/17 08:00 09:25 11:15 Temperature 98.2 F Pulse Rate 60 60 Respiratory 16 14 Rate Blood Pressure 106/46 111/40 (mmHg) O2 Sat by Pulse 97 Oximetry 08/17/17 08/17/17 08/17/17 15:54 17:38 19:35 Temperature 98.3 F 98.7 F Pulse Rate 62 62 59 Respiratory 15 15 Rate Blood Pressure 106/46 106/46 (mmHg) O2 Sat by Pulse 95 96 Oximetry 08/17/17 19:45 Temperature Pulse Rate Respiratory 15 Rate Blood Pressure (mmHg) O2 Sat by Pulse Oximetry Oxygen Devices in Use Now: Nasal Cannula Appearance: NAD, lying in bed. Eyes: No Scleral Icterus, PERRLA Ears/Nose/Mouth/Throat: NL Teeth, Lips, Gums, Mucous Membranes Moist Neck: NL Appearance and Movements; NL JVP Respiratory: Symmetrical Chest Expansion and Respiratory Effort, - - anteriorly CTAB no w/r/r Cardiovascular: NL Sounds; No Murmurs; No JVD, RRR Abdominal: NL Sounds; No Tenderness; No Distention Extremities: No Edema, No Clubbing, Cyanosis, - - left leg in brace Skin: No Rash or Ulcers, No Nodules or Sclerosis Neurological: - - oriented to name, hospital and reason for admission. Had transient episode, seemed to shut eyes, turn head to side and be somewhat more confused for about a minute during interview. Result Diagrams: 08/17/17 04:28 08/17/17 06:37 Additional Lab and Data: Laboratory Results - last 24 hr 08/17/17 08/17/17 08/17/17 04:28 04:28 04:28 WBC 5.3 RBC 2.32 L Hgb 7.2 L Hct 21 L MCV 93 MCH 31 MCHC 34 RDW 15 Plt Count 119 L MPV 10 Neut % (Auto) 62.4 Lymph % (Auto) 26.1 [place] % (Auto) 6.8 Eos % (Auto) 4.0 Baso % (Auto) 0.7 Absolute Neuts (auto) 3.3 Absolute Lymphs (auto) 1.4 Absolute Monos (auto) 0.4 Absolute Eos (auto) 0.2 Absolute Basos (auto) 0 Absolute Nucleated RBC 0 Nucleated RBC % 0 Sodium 136 Potassium TNP Chloride 108 Carbon Dioxide 29 Anion Gap Not Reportable BUN 32 H Creatinine 1.39 H Est GFR ( Amer) 46.2 Est GFR (Non-Af Amer) 35.9 BUN/Creatinine Ratio 23.0 H Glucose 87 Calcium 8.6 Valproic Acid 114.0 H Blood Type A Positive Antibody Screen Negative 08/17/17 06:37 WBC RBC Hgb Hct MCV MCH MCHC RDW Plt Count MPV Neut % (Auto) Lymph % (Auto) [place] % (Auto) Eos % (Auto) Baso % (Auto) Absolute Neuts (auto) Absolute Lymphs (auto) Absolute Monos (auto) Absolute Eos (auto) Absolute Basos (auto) Absolute Nucleated RBC Nucleated RBC % Sodium Potassium 5.3 H Chloride Carbon Dioxide Anion Gap BUN Creatinine Est GFR ( Amer) Est GFR (Non-Af Amer) BUN/Creatinine Ratio Glucose Calcium Valproic Acid Blood Type Antibody Screen Microbiology and Other Data: Microbiology 08/15/17 21:05 Urine Urine Culture - Final Strep Dysgalactiae (Grp C) Assess/Plan/Problems-Billing 87 yo F PMH afib (not on anticoagulation), seizure disorder(depakote) and likely mild cognitive impairment who presented to the ER after falling at home and was found to have a left periprosthetic femur fracture. JOLENE, hyperkalemia, possible partial seizures. Rt basilar infiltrate on CXR. Cftz, azithromycin - Patient Problems (1) Anemia Current Visit: Yes Status: Acute Code(s): D64.9 - ANEMIA, UNSPECIFIED SNOMED Code(s): 594185358 Comment: likely somewhat dilutional with IVF. Type and screen. No e/o GI bleed. Add haptoglobin and LDH to investigate hemolysis. Hgb 7.2 from 9.0 form 10.3. (2) JOLENE (acute kidney injury) Current Visit: Yes Status: Acute Code(s): N17.9 - ACUTE KIDNEY FAILURE, UNSPECIFIED SNOMED Code(s): 48067989 Comment: Creatinine 1.39. Has been on NS 75cc/hr since admission. (3) Hyperkalemia Current Visit: Yes Status: Acute Code(s): E87.5 - HYPERKALEMIA SNOMED Code (s): 63282894 Comment: Likely related to JOLENE, s/p D50 and regular insulin 10 units IV 08/16. Continue IVF hydration. Repeat BMP, consider kayexalate in AM. (4) Periprosthetic fracture of shaft of femur Current Visit: Yes Status: Acute Code(s): M97.8XXA - PERIPROSTH FRACTURE AROUND OTHER INTERNAL PROSTH JOINT, INIT; Z96.649 - PRESENCE OF UNSPECIFIED ARTIFICIAL HIP JOINT SNOMED Code(s): 553936872 Comment: Needs surgery, likely Sunday 08/[address] Staley. Continue pain control. She will likely need STR prior to going back home. (5) Seizure disorder Current Visit: Yes Status: Acute Code(s): G40.909 - EPILEPSY, UNSP, NOT INTRACTABLE, WITHOUT STATUS EPILEPTICUS SNOMED Code(s): 113236260 Comment: Continue depakote but reduce back to 500mg bid given elevated levels (though not true trough). consider neuro consult, EEG given suspicious transient AMS episodes. (6) Hypertension Current Visit: Yes Status: Chronic Code(s): I10 - ESSENTIAL (PRIMARY) HYPERTENSION SNOMED Code(s): 64394498 Comment: Continue atenolol. (7) Paroxysmal a-fib Current Visit: Yes Status: Chronic Code(s): I48.0 - PAROXYSMAL ATRIAL FIBRILLATION SNOMED Code(s): 635721206 Comment: Currently in NSR. Pt has pacer. Continue digoxin. Hold parameters placed on atenolol. Pt is not on anticoagulation at baseline. (8) Lung infiltrate Current Visit: Yes Status: Acute Code(s): R91.8 - OTHER NONSPECIFIC ABNORMAL FINDING OF LUNG FIELD SNOMED Code(s): 552541835 Comment: Continue cftx for potential CAP. supplemental oxygen prn. sputum cx if starts to cough (has not been). Status and Disposition: medicine inpatient. Attending: Ti Summers
[2017-08-18] MEDS: Acetaminophen TAB* 325 MG PO PRN ×2 (00:28→06:19)
[2017-08-18] MEDS: NS 0.9% 1000 ML* 1,000 ML IV SCH (01:01)
[2017-08-18] MEDS: Heparin VIAL(*) 5000 UNITS/ML VIAL (FIVE THOUSAND) SUBCUT SCH ×3 (06:19→20:52)
[2017-08-18 08:40] LABS: BUN/Creatinine Ratio 21.6 (8-20); Blood Urea Nitrogen 24 mg/dL (6-24); CO2 Carbon Dioxide 25 mmol/L (22-32); Calcium 8.4 mg/dL (8.6-10.3); Chloride 110 mmol/L (101-111); EGFR African American 59.9 (>60); EGFR Non-African American 46.6 (>60); Glucose 83 mg/dL (70-100); Hematocrit 21 % (35-47); Mean Corpuscular HGB Conc 33 g/dl (31-36); Mean Corpuscular Hemoglobin 31 pg (27-31); Mean Corpuscular Volume 93 fL (80-97); Mean Platelet Volume 10 um3 (7.4-10.4); Red Blood Count 2.26 10^6/ul (4.0-5.4); Red Cell Distribution Width 15 % (10.5-15); Sodium 135 mmol/L (133-145); White Blood Count 5.2 10^3/ul (3.5-10.8)
[2017-08-18 08:45] LABS: Potassium 5.1 mmol/L (3.5-5.0)
--- NOTE | 2017-08-18 08:49 | PN ---
Progress Note - Progress Note Date of Service: 08/18/17 SOAP: Subjective: 87 y/o female with L periprosthetic femur fracture. Patient more alert, aware this AM then yesterday, denies any pain, no questions. Resting comfortably in bed drinking. Objective: General- well appearing, NAD, A, resting in bed MSK- immobilizer in place, non-tender to palpation throughout entire L thigh, PT pulses 2+ b/l, + Df/PF, however weak effort. No swelling noted. responds to verbal commands with poor effort. Vital Signs Temp 97.2 F 08/18/17 07:56 Pulse 62 08/18/17 07:56 Resp 16 08/18/17 08:00 BP 116/55 08/18/17 07:56 Pulse Ox 96 08/18/17 07:56 Intake & Output 08/17/17 08/18/17 08/18/17 18:59 06:59 18:59 Intake Total 310 2465 Output Total 300 1650 Balance 10 815 Weight 100 lb 3.2 oz Intake: IV Fluids 2004 NS (0.9%) 2004 Oral 310 460 Output: Urine 750 [place] 300 900 Other: # Bowel Movements 1 Estimated Stool Amount Small Assessment: Stable 87 y/o female with L periprosthetic femur fracture. Plan: - Continue planning with hospitalist for OR clearance - Continue bed rest with immobilizer - Mild H&H drop- will discuss with hospitalists about tranfusion - Creatinine, K+ improving - PT, PTT for tomorrows labs Active Medications Generic Name Dose Route Start Last Admin Trade Name Freq PRN Reason Stop Dose Admin Acetaminophen 650 mg 08/15/17 21:08 08/18/17 06:19 Tylenol Tab* PO 650 mg Q4H PRN Administration Mild Pain Aspirin 81 mg 08/16/17 09:00 08/17/17 09:26 Aspirin Ec Low Dose* PO 81 mg DAILY [facility] Administration Atenolol 25 mg 08/16/17 18:00 08/17/17 17:37 Tenormin Tab* PO 25 mg QPM [facility] Administration Atenolol 12.5 mg 08/16/17 09:40 08/17/17 09:05 Tenormin Tab* PO Not Given QAM [facility] Digoxin 0.25 mg 08/16/17 17:00 08/16/17 18:01 Lanoxin Tab* PO 0.25 mg EVERY OTHER DAY@1700 [facility] Administration Digoxin 0.125 mg 08/17/17 17:00 08/17/17 17:38 Lanoxin Tab* PO 0.125 mg EVERY OTHER DAY@1700 [facility] Administration Divalproex Sodium 500 mg 08/18/17 09:00 Depsunshine [place] Tab(*) PO BID [facility] Docusate Sodium 100 mg 08/16/17 21:07 08/16/17 21:19 Colace Cap* PO 100 mg BID PRN Administration CONSTIPATION Heparin Sodium (Porcine) 5,000 units 08/15/17 22:00 08/18/17 06:19 Heparin Vial(*) SUBCUT 5,000 units Q8HR [facility] Administration Sodium Chloride 1,000 mls @ 75 mls/hr 08/15/17 21:15 08/18/17 01:01 Ns 0.9% 1000 Ml* IV 75 mls/hr PER RATE [facility] Administration Ceftriaxone Sodium 1,000 mg/ 50 mls @ 200 mls/hr 08/16/17 13:00 08/17/17 12: 56 Sodium Chloride IVPB 200 mls/hr Q24H [facility] Administration Azithromycin 500 mg/ Sodium 250 mls @ 250 mls/hr 08/16/17 13:00 08/17/17 13: 23 Chloride IVPB 250 mls/hr Q24H [facility] Administration Magnesium Hydroxide 30 ml 08/16/17 21:07 08/16/17 21:20 Milk Of Magnesia Liq* PO 30 ml Q6H PRN Administration CONSTIPATION Morphine Sulfate 2 mg 08/15/17 21:13 Morphine Inj (Syringe)* IV Q2H PRN SEVERE PAIN Ondansetron HCl 4 mg 08/15/17 21:08 Zofran Inj* IV Q4H PRN NAUSEA/VOMITING Oxycodone HCl 2.5 mg 08/15/17 21:13 Roxycodone Tab* PO Q4H PRN PAIN Polyethylene Glycol/Electrolytes 17 gm 08/16/17 21:07 Miralax* PO DAILY PRN [facility] Laboratory Results - last 24 hr 08/18/17 08/18/17 08:11 08:11 WBC 5.2 RBC 2.26 L Hgb 7.0 L Hct 21 L MCV 93 MCH 31 MCHC 33 RDW 15 Plt Count 102 L MPV 10 Sodium 135 Potassium 5.1 H Chloride 110 Carbon Dioxide 25 Anion Gap Not Reportable BUN 24 Creatinine 1.11 H Est GFR ( Amer) 59.9 Est GFR (Non-Af Amer) 46.6 BUN/Creatinine Ratio 21.6 H Glucose 83 Calcium 8.4 L
[2017-08-18] MEDS: Atenolol TAB* 25 MG PO SCH ×2 (09:37→17:57)
[2017-08-18] MEDS: Aspirin EC Low Dose* 81 MG TAB.EC PO SCH (09:39)
[2017-08-18] MEDS: Divalproex DR TAB(*) 500 MG PO SCH ×2 (09:40→20:52)
[2017-08-18] MEDS: Azithromycin IV(*) 500 MG in NS 0.9% 250 ML* 250 ML IVPB SCH (12:17)
[2017-08-18] MEDS: cefTRIAXone VIAL(*) 1,000 MG in NS 0.9% 50 ML* 50 ML IVPB SCH (14:00)
--- NOTE | 2017-08-18 15:16 | PN ---
Subjective Date of Service: 08/18/17 Interval History: Hgb to 7.0, two units pRBC ordered after RN got hold of son Ed to consent. 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 Pain controlled. Planning OR in AM. Denies SOB or cough Objective Active Medications: Acetaminophen (Tylenol Tab*) 650 mg PO Q4H PRN PRN Reason: Mild Pain Last Admin: 08/18/17 06:19 Dose: 650 mg Aspirin (Aspirin Ec Low Dose*) 81 mg PO DAILY [facility] Last Admin: 08/18/17 09:39 Dose: 81 mg Atenolol (Tenormin Tab*) 25 mg PO QPM [facility] Last Admin: 08/17/17 17:37 Dose: 25 mg Atenolol (Tenormin Tab*) 12.5 mg PO QAM [facility] Last Admin: 08/18/17 09:37 Dose: Not Given Digoxin (Lanoxin Tab*) 0.25 mg PO EVERY OTHER DAY@1700 [facility] Last Admin: 08/16/17 18:01 Dose: 0.25 mg Digoxin (Lanoxin Tab*) 0.125 mg PO EVERY OTHER DAY@1700 [facility] Last Admin: 08/17/17 17:38 Dose: 0.125 mg Divalproex Sodium (Depakote Dr Tab(*)) 500 mg PO BID [facility] Last Admin: 08/18/17 09:40 Dose: 500 mg Docusate Sodium (Colace Cap*) 100 mg PO BID PRN PRN Reason: CONSTIPATION Last Admin: 08/16/17 21:19 Dose: 100 mg Heparin Sodium (Porcine) (Heparin Vial(*)) 5,000 units SUBCUT Q8HR [facility] Last Admin: 08/18/17 14:00 Dose: 5,000 units Sodium Chloride (Ns 0.9% 1000 Ml*) 1,000 mls @ 75 mls/hr IV PER RATE [facility] Last Admin: 08/18/17 01:01 Dose: 75 mls/hr Ceftriaxone Sodium 1,000 mg/ (Sodium Chloride) 50 mls @ 200 mls/hr IVPB Q24H [facility] Last Admin: 08/18/17 14:00 Dose: 200 mls/hr Azithromycin 500 mg/ Sodium (Chloride) 250 mls @ 250 mls/hr IVPB Q24H [facility] Last Admin: 08/18/17 12:17 Dose: 250 mls/hr Magnesium Hydroxide (Milk Of Magnesia Liq*) 30 ml PO Q6H PRN PRN Reason: CONSTIPATION Last Admin: 08/16/17 21:20 Dose: 30 ml Morphine Sulfate (Morphine Inj (Syringe)*) 2 mg IV Q2H PRN PRN Reason: SEVERE PAIN Ondansetron HCl (Zofran Inj*) 4 mg IV Q4H PRN PRN Reason: NAUSEA/VOMITING Oxycodone HCl (Roxycodone Tab*) 2.5 mg PO Q4H PRN PRN Reason: PAIN Polyethylene Glycol/Electrolytes (Miralax*) 17 gm PO DAILY PRN PRN Reason: CONSTIPATION Vital Signs 08/17/17 08/17/17 08/17/17 15:54 17:38 19:35 Temperature 98.3 F 98.7 F Pulse Rate 62 62 59 Respiratory 15 15 Rate Blood Pressure 106/46 106/46 (mmHg) O2 Sat by Pulse 95 96 Oximetry 08/17/17 08/17/17 08/18/17 19:45 23:41 03:29 Temperature 98.1 F 97.7 F Pulse Rate 62 60 Respiratory 15 16 18 Rate Blood Pressure 116/50 130/59 (mmHg) O2 Sat by Pulse 91 95 Oximetry 08/18/17 08/18/17 07:56 08:00 Temperature 97.2 F Pulse Rate 62 Respiratory 13 16 Rate Blood Pressure 116/55 (mmHg) O2 Sat by Pulse 96 Oximetry Oxygen Devices in Use Now: Nasal Cannula Appearance: NAD. resting in bed. Eyes: No Scleral Icterus, PERRLA Ears/Nose/Mouth/Throat: NL Teeth, Lips, Gums, Mucous Membranes Moist Neck: NL Appearance and Movements; NL JVP Respiratory: - - anteriorly CTAB, no w/r/r Cardiovascular: NL Sounds; No Murmurs; No JVD, RRR Abdominal: NL Sounds; No Tenderness; No Distention, No Hepatosplenomegaly Extremities: No Edema, No Clubbing, Cyanosis, - - left leg in brace Skin: No Rash or Ulcers, No Nodules or Sclerosis Lines/Tubes/Other Access: Clean, Dry and Intact [place] Nutrition: Taking PO's Result Diagrams: 08/18/17 08:11 08/18/17 08:11 Additional Lab and Data: Laboratory Results - last 24 hr 08/17/17 08/18/17 08/18/17 04:28 08:11 08:11 WBC 5.2 RBC 2.26 L Hgb 7.0 L Hct 21 L MCV 93 MCH 31 MCHC 33 RDW 15 Plt Count 102 L MPV 10 Sodium 135 Potassium 5.1 H Chloride 110 Carbon Dioxide 25 Anion Gap Not Reportable BUN 24 Creatinine 1.11 H Est GFR ( Amer) 59.9 Est GFR (Non-Af Amer) 46.6 BUN/Creatinine Ratio 21.6 H Glucose 83 Calcium 8.4 L Blood Type A Positive Antibody Screen Negative Crossmatch See Detail Microbiology and Other Data: Microbiology 08/15/17 21:05 Urine Urine Culture - Final Strep Dysgalactiae (Grp C) Assess/Plan/Problems-Billing 87 yo F PMH afib (not on anticoagulation), seizure disorder(depakote) and likely mild cognitive impairment who presented to the ER after falling at home( unwitnessed, ?seizure) and was found to have a left periprosthetic femur fracture. Course c/b JOLENE(improving), hyperkalemia, possible partial seizures, anemia (getting 2u prbc). Rt basilar infiltrate on CXR. Cftx, azithromycin. Planned OR 08/19 - Patient Problems (1) Anemia Current Visit: Yes Status: Acute Code(s): D64.9 - ANEMIA, UNSPECIFIED SNOMED Code(s): 472014353 Comment: Hgb 7.0 from 7.2 from 9.0 form 10.3. Likely somewhat dilutional with IVF. s/p Type and screen. No e/o GI bleed. 2u pRBC 08/18 and 2u prepped in OR if needed for 08/19 (2) JOLENE (acute kidney injury) Current Visit: Yes Status: Acute Code(s): N17.9 - ACUTE KIDNEY FAILURE, UNSPECIFIED SNOMED Code(s): 96087146 Comment: Creatinine improved 1.11 from 1.39. Has been on NS 75cc/hr since admission. (3) Hyperkalemia Current Visit: Yes Status: Acute Code(s): E87.5 - HYPERKALEMIA SNOMED Code (s): 02454950 Comment: mild, K 5.1. Likely related to JOLENE, s/p D50 and regular insulin 10 units IV 08/16. Continue IVF hydration. BMP daily. (4) Periprosthetic fracture of shaft of femur Current Visit: Yes Status: Acute Code(s): M97.8XXA - PERIPROSTH FRACTURE AROUND OTHER INTERNAL PROSTH JOINT, INIT; Z96.649 - PRESENCE OF UNSPECIFIED ARTIFICIAL HIP JOINT SNOMED Code(s): 029579198 Comment: Needs surgery, likely Sunday 08/[address] Staley. Continue pain control. She will likely need STR prior to going back home. (5) Seizure disorder Current Visit: Yes Status: Acute Code(s): G40.909 - EPILEPSY, UNSP, NOT INTRACTABLE, WITHOUT STATUS EPILEPTICUS SNOMED Code(s): 902844346 Comment: Continue depakote but reduce back to 500mg bid given elevated levels (though not true trough). Neuro consulted 08/18. f/u recs. (6) Hypertension Current Visit: Yes Status: Chronic Code(s): I10 - ESSENTIAL (PRIMARY) HYPERTENSION SNOMED Code(s): 06804684 Comment: Continue atenolol. (7) Paroxysmal a-fib Current Visit: Yes Status: Chronic Code(s): I48.0 - PAROXYSMAL ATRIAL FIBRILLATION SNOMED Code(s): 899776144 Comment: Currently in NSR. Pt has pacer ([employer]tronic VEDRO1 in Rat[place], Rventricle). Continue digoxin. Hold parameters placed on atenolol. Pt is not on anticoagulation at baseline. (8) Lung infiltrate Current Visit: Yes Status: Acute Code(s): R91.8 - OTHER NONSPECIFIC ABNORMAL FINDING OF LUNG FIELD SNOMED Code(s): 456016486 Comment: Continue cftx for potential CAP. supplemental oxygen prn. sputum cx if starts to cough (has not been). Status and Disposition: medicine inpatient. Planned OR 08/19 Attending: Ti Summers
--- NOTE | 2017-08-18 16:04 | PN ---
Progress Note - Progress Note Date of Service: 08/18/17 Note: I had a nice conversation with Lulú this afternoon. We talked about the surgery. She would like to proceed. She has a L periprosthetic femur fracture with most likely a stable hip hemiarthroplasty implant. This [place] [address] Miguel García and is a Depuy implant. We will have a revision hip implant ready should the implant be loose but this will most likely be treated with a plate and screws. I spoke with Dr. Summers. Medically she is certainly high risk but she is as optimal as she will likely be. I attempted to call her son Ed. There was no answer. I left a voicemail with my phone number. I will try to speak with him again before surgery. Certainly I think that if we can stabilize the bone and allow her to mobilize this will give her the best chance of getting through this. Npo at midnight. Plan for surgery tomorrow morning at 8 am. No DVT prophylaxis tomorrow.
[2017-08-18] MEDS ORDERED: Furosemide IV* 10 MG/ML 2 ML VIAL (20 MG) IV ONE (16:25)
[2017-08-18] MEDS: Digoxin TAB* 0.25 MG PO SCH (16:46)
[2017-08-18 18:06] LABS: Urine Bacteria 1+ (Absent); Urine Bilirubin Negative (Negative); Urine Glucose Negative (Negative); Urine Nitrite Negative (Negative)
[2017-08-18 18:43] LABS: Hematocrit 26 % (35-47); Hemoglobin 8.3 g/dl (12.0-16.0)
--- NOTE | 2017-08-18 19:58 | CONS ---
CC: Dr. Ti Summers; Dr. Romero NEUROLOGY CONSULTATION: DATE OF CONSULT: 08/18/17 LOCATION: The patient is an inpatient. REQUESTING PHYSICIAN: Dr. Ti Summers. REASON FOR CONSULT: Breakthrough seizures. HISTORY OF PRESENT ILLNESS: Lulú Nieves is an 87-year-old woman with a history of medically intractable temporal lobe epilepsy, stroke, tachybrady syndrome with pacemaker placement as well as atrial fibrillation, not currently on anticoagulation, who is in the hospital after she had a fall at home and had a periprosthetic hip fracture on the left. The reason for the fall is unclear, but it has been questioned whether she could have had a seizure at home leading to the fall. The patient is largely unable to contribute to any of the history today and so history was taken from review of the outpatient medical record as well as discussion with Dr. Summers and available notes from this admission. As an outpatient, Ms. Nieves's seizure disorder is currently treated with Depakote 500 mg twice daily. She was previously treated with levetiracetam, which was changed over to Depakote a little over a year ago. She apparently came in with some seizures last year on 3000 mg daily of levetiracetam at which point, Depakote was added and then it appears that levetiracetam was weaned off. The patient is not aware of having had any seizures recently. Review of the outpatient record indicates that she is frequently unaware of her seizures and seizures are reported in followup visits by her son. Dr. Summers indicates that during his assessment yesterday, she had an episode where she suddenly became nonresponsive to him and seemed to turn her head to the left. Initially , he thought she might be in pain, but then after 30 seconds to a minute, she was responsive again but was disoriented whereas she had been previously better oriented during his evaluation. He was concerned that this may have represented a breakthrough seizure. The nurse yesterday subsequently reported approximately 5 similar events, but no further events have been reported today. She is currently being treated for pneumonia with ceftriaxone and azithromycin. She is being prepared for surgery with Dr. Staley tomorrow for the hip repair. Neurology consultation was requested secondary to the increase in apparent seizures recently. I will also note that her Depakote level was low on admission. She was admitted on 11/01/17 and Depakote level at approximately 6:30 p.m. was 30. The following morning, the level was 81. Her nighttime dose was increased to 750 for a couple of days and her level at 4:30 in the morning on 08/17/17 was 114. She had received Depakote at approximately 9:15 the night before. Subsequently, the dose was decreased to 500 mg twice daily. PAST MEDICAL HISTORY: Temporal lobe epilepsy; stroke; tachybrady syndrome, status post pacemaker; atrial fibrillation, not on anticoagulation; left hip fracture. PAST SURGICAL HISTORY: Pacemaker placement, left total hip arthroplasty. MEDICATIONS: Home medications: 1. Depakote 500 mg twice daily. 2. Digoxin 0.25 mg every other day alternating with 0.125 mg. 3. Atenolol 12.5 mg in the morning and 25 mg at night. 4. Aspirin 81 mg. Current medications: 1. Tylenol 650 q.4 hours p.r.n. 2. Aspirin 81 mg daily. 3. Atenolol 12.5 mg in the morning and 25 mg in the evening. 4. Azithromycin 500 mg q.24 hours. 5. Ceftriaxone 1000 mg q.24 hours. 6. Digoxin. 7. Depakote DR 500 mg twice daily. 8. Colace. 9. Pepcid. 10. Heparin 5000 units q.8 hours. 11. Milk of magnesia q.6 hours p.r.n. 12. Morphine 2 mg IV q.2 hours p.r.n., which she has not received. 13. Oxycodone 2.5 mg q.4 hours p.r.n. pain, which she has not received. ALLERGIES: There is an allergy to EGG or EGG DERIVED PRODUCTS. FAMILY HISTORY: The patient is unable to provide at this time. SOCIAL HISTORY: She reports that she lives with her son, who also gives to her medications. She was a little over a year ago. REVIEW OF SYSTEMS: She has some pain in her left hip. Otherwise, as per the HPI. PHYSICAL EXAM: Vital Signs: Temperature 98.5, blood pressure 105/42, heart rate 64, oxygen saturation is 93% on 2 L oxygen. On general exam, she is a thin , frail, elderly woman, in no acute distress. Her heart is in a regular rate and rhythm. The lungs are clear to auscultation bilaterally. She has some lightly pigmented patches noted over her arms bilaterally. She was encouraged by her nurse to tell me about several family losses she had experienced this past summer and she told me that both of her parents and her siblings had and she was the only one that survived. She was unable to say what her family members had passed from. On neurologic examination, she is fully awake and alert. She is hard of hearing. She is not oriented to the date. She was able to state the president. She was able to state her date of , but not her age. On cranial nerve examination, pupils are equal, round, and reactive from 2.5 to 2 mm bilaterally. Versions are full without nystagmus. Pol[place] are full to confrontation. Facial sensation and musculature is full and symmetric. The palate elevates symmetrically and the tongue is midline. On motor examination, she has diminished bulk throughout, but normal tone. Strength is full in the upper extremities. Strength is at least antigravity in the right leg and she is able to wiggle the toes on the left, but is not able to move the left leg due to pain. Sensation is intact to light touch throughout. Reflexes are 2+ in the upper extremities. Nyahlf-ul-egux is intact without ataxia. She is nonambulatory at this time. DIAGNOSTIC STUDIES/LAB DATA: Valproic acid levels were reviewed as per the HPI. BMP shows a normal sodium, slightly high potassium of 5.1, creatinine of 1.11 which is improved from a high of 1.43 on 08/16/17. Calcium is 8.4. LFTs obtained on 08/15/17 were normal. Her albumin is low at 3.0. Her total protein is normal at 8.7. CBC is notable for a hemoglobin of 7 and a hematocrit of 21 and she is receiving packed red blood cells. Her platelets are down to 102 from an admission value of 173. On admission, her hematocrit was 31. Brain CT was obtained on admission and was personally reviewed. This shows diffuse volume loss with evidence of encephalomalacia in the right MCA territory , but no acute findings. IMPRESSION AND PLAN: Lulú Nieves is an 87-year-old woman with a history of temporal lobe epilepsy, treated with Depakote, admitted with a left hip fracture , who has had several episodes yesterday concerning for breakthrough complex partial seizures. There have been no witnessed episodes today. She is concurrently being treated for pneumonia with azithromycin and ceftriaxone. The presence of systemic infection could lower her seizure threshold as could the pain related to her hip fracture. Her Depakote level has been fluctuating somewhat since her admission and her protein is low, so I would like to get a free Depakote level. In addition, I will get an EEG later today to help determine how active her EEG is. I am hesitant to add another agent to her antiseizure regimen just yet when she seems to be at her baseline currently. I have spoken with the nurse about what to look for in terms of the presentation of complex partial seizures and have asked to be called if there are any further concerning episodes. If this occurs, I will consider adding another agent and possibly restarting Keppra which she has been on in the past versus adding a new agent. [id number]/[facility] #: [id number] MTDD
[2017-08-18] MEDS ORDERED: Permethrin 1% LOTION* 59 ML BTL TOPICAL ONE (22:31)
--- NOTE | 2017-08-18 22:49 | PN ---
Hospitalist Progress Note Given "drop" in diastolic blood pressure during transfusion of first of two planned pRBC (though really just return to previous baseline througout rest of day), transfusion reaction protocol was triggered. Spoke with pathologist Dr. Baca this evening after initial workup revealed a previously unrecognized Auto antibody, elayne positive. 2nd pRBC was not given. Hgb up to 8.3. This would mean the 2 prepared units to be available during surgery planned for tomorrow might also have some cross reaction potential. Dr. Baca mentioned if surgery was emergently necessary there are ways to mitigate cross match and still give the blood if necessary. However [place] may be able to find more compatible blood if surgery were to be postpones past original 8am start date. This sometimes takes a few hours, sometimes a few days. Incidently during EEG placement this evening pt found to have head lice. Given non- emergent nature of surgery, reasonable to postpone surgery if large EBL expected to allow for matched blood products to be prepared. Permetherin ordered.
[2017-08-19 05:54] LABS: Hematocrit 23 % (35-47); Hemoglobin 7.8 g/dl (12.0-16.0); Mean Corpuscular HGB Conc 34 g/dl (31-36); Mean Corpuscular Hemoglobin 31 pg (27-31); Mean Corpuscular Volume 92 fL (80-97); Mean Platelet Volume 10 um3 (7.4-10.4); Red Blood Count 2.51 10^6/ul (4.0-5.4); Red Cell Distribution Width 15 % (10.5-15)
[2017-08-19] MEDS ORDERED: Famotidine IV* 10 MG/ML 2 ML (20 mg) IV ONE (06:00)
[2017-08-19] MEDS ORDERED: Gabapentin CAP(*) 300 MG PO ONE (06:00)
[2017-08-19 06:06] LABS: Calcium 9.1 mg/dL (8.6-10.3); EGFR African American 67.6 (>60); EGFR Non-African American 52.6 (>60); Potassium 4.8 mmol/L (3.5-5.0)
--- NOTE | 2017-08-19 08:07 | PN ---
Progress Note - Progress Note Date of Service: 08/19/17 SOAP: Subjective: 87 y/o female with L periprosthetic femur fracture. Patient lying in bed, resting, does not want to be disturbed. VSS, afebrile overnight. Objective: General- Well appearing, NAD, AO MSK- immoblizer not in place. Patient unwilling to answer questions/ commands. PT pulses 1+ b/l. Vital Signs Temp 98.6 F 08/19/17 03:13 Pulse 60 08/19/17 03:13 Resp 20 08/19/17 06:09 BP 145/67 08/19/17 03:13 Pulse Ox 95 08/19/17 03:13 Intake & Output 08/18/17 08/19/17 08/19/17 19:59 06:59 18:59 Intake Total Output Total Balance Intake: Oral Output: [place] Other: Estimated Stool Amount Assessment: Stable 87 y/o female with L periprosthetic femur fracture. Plan: - renal function continues to improve - Anemia- underwent transfusion yesterday, however had mild transfusion reaction , surgery post-poned due to inability to find matching blood type/ non-emergent surgery - Neurology consult- continue to monitor Depakote levels, possible decreased seizure threshold due to PNA, pain - Possible OR tomorrow when blood arrives - Knee immobilizer removed due to incontinent episode- to be replaced when dried. Laboratory Results - last 24 hr 08/17/17 08/18/17 08/18/17 04:28 08:09 16:15 WBC RBC Hgb Hct MCV MCH MCHC RDW Plt Count MPV Neut % (Auto) Lymph % (Auto) [place] % (Auto) Eos % (Auto) Baso % (Auto) Absolute Neuts (auto) Absolute Lymphs (auto) Absolute Monos (auto) Absolute Eos (auto) Absolute Basos (auto) Absolute Nucleated RBC Nucleated RBC % INR (Anticoag Therapy) APTT Sodium Potassium Chloride Carbon Dioxide Anion Gap BUN Creatinine Est GFR ( Amer) Est GFR (Non-Af Amer) BUN/Creatinine Ratio Glucose Calcium Total Bilirubin 0.20 Urine Color Urine Appearance Urine pH Ur Specific [place] Urine Protein Urine Ketones Urine Blood Urine Nitrate Urine Bilirubin Urine Urobilinogen Ur Leukocyte Esterase Urine WBC (Auto) Urine RBC (Auto) Ur Squamous Epith Cells Urine Bacteria Urine Glucose Valproic Acid Blood Type A Positive Antibody Screen Negative Crossmatch See Detail Donor Unit # [id number] Post-Trans Blood Type A Positive Post-Trans TEZ Weakly positive 08/18/17 08/18/17 08/18/17 16:15 16:15 18:30 WBC RBC Hgb 8.3 L Hct 26 L MCV MCH MCHC RDW Plt Count MPV Neut % (Auto) Lymph % (Auto) [place] % (Auto) Eos % (Auto) Baso % (Auto) Absolute Neuts (auto) Absolute Lymphs (auto) Absolute Monos (auto) Absolute Eos (auto) Absolute Basos (auto) Absolute Nucleated RBC Nucleated RBC % INR (Anticoag Therapy) APTT Sodium Potassium Chloride Carbon Dioxide Anion Gap BUN Creatinine Est GFR ( Amer) Est GFR (Non-Af Amer) BUN/Creatinine Ratio Glucose Calcium Total Bilirubin 0.20 Urine Color Yellow Urine Appearance Clear Urine pH 5.0 Ur Specific [place] 1.012 Urine Protein Negative Urine Ketones Negative Urine Blood 1+ H Urine Nitrate Negative Urine Bilirubin Negative Urine Urobilinogen Negative Ur Leukocyte Esterase Trace H Urine WBC (Auto) 1+(6-10/hpf) H Urine RBC (Auto) 1+(3-5/hpf) H Ur Squamous Epith Cells Present H Urine Bacteria 1+ H Urine Glucose Negative Valproic Acid Blood Type Antibody Screen Crossmatch Donor Unit # Post-Trans Blood Type Post-Trans TEZ 08/18/17 08/19/17 08/19/17 19:08 05:38 05:38 WBC RBC Hgb Hct MCV MCH MCHC RDW Plt Count MPV Neut % (Auto) Lymph % (Auto) [place] % (Auto) Eos % (Auto) Baso % (Auto) Absolute Neuts (auto) Absolute Lymphs (auto) Absolute Monos (auto) Absolute Eos (auto) Absolute Basos (auto) Absolute Nucleated RBC Nucleated RBC % INR (Anticoag Therapy) 0.90 APTT 26.3 Sodium 134 Potassium 4.8 Chloride 104 Carbon Dioxide 29 Anion Gap 1 L BUN 22 Creatinine 1.00 H Est GFR ( Amer) 67.6 Est GFR (Non-Af Amer) 52.6 BUN/Creatinine Ratio 22.0 H Glucose 88 Calcium 9.1 Total Bilirubin Urine Color Urine Appearance Urine pH Ur Specific [place] Urine Protein Urine Ketones Urine Blood Urine Nitrate Urine Bilirubin Urine Urobilinogen Ur Leukocyte Esterase Urine WBC (Auto) Urine RBC (Auto) Ur Squamous Epith Cells Urine Bacteria Urine Glucose Valproic Acid 89.0 Blood Type Antibody Screen Crossmatch See Detail Donor Unit # Post-Trans Blood Type Post-Trans TEZ 08/19/17 05:38 WBC 7.0 RBC 2.51 L Hgb 7.8 L Hct 23 L MCV 92 MCH 31 MCHC 34 RDW 15 Plt Count 121 L MPV 10 Neut % (Auto) 71.6 Lymph % (Auto) 18.0 L [place] % (Auto) 7.7 Eos % (Auto) 2.3 Baso % (Auto) 0.4 Absolute Neuts (auto) 5.0 Absolute Lymphs (auto) 1.3 Absolute Monos (auto) 0.5 Absolute Eos (auto) 0.2 Absolute Basos (auto) 0 Absolute Nucleated RBC 0 Nucleated RBC % 0 INR (Anticoag Therapy) APTT Sodium Potassium Chloride Carbon Dioxide Anion Gap BUN Creatinine Est GFR ( Amer) Est GFR (Non-Af Amer) BUN/Creatinine Ratio Glucose Calcium Total Bilirubin Urine Color Urine Appearance Urine pH Ur Specific [place] Urine Protein Urine Ketones Urine Blood Urine Nitrate Urine Bilirubin Urine Urobilinogen Ur Leukocyte Esterase Urine WBC (Auto) Urine RBC (Auto) Ur Squamous Epith Cells Urine Bacteria Urine Glucose Valproic Acid Blood Type Antibody Screen Crossmatch Donor Unit # Post-Trans Blood Type Post-Trans TEZ Active Medications Generic Name Dose Route Start Last Admin Trade Name Freq PRN Reason Stop Dose Admin Acetaminophen 650 mg 08/15/17 21:08 08/18/17 06:19 Tylenol Tab* PO 650 mg Q4H PRN Administration Mild Pain Aspirin 81 mg 08/16/17 09:00 08/18/17 09:39 Aspirin Ec Low Dose* PO 81 mg DAILY MAKEDA Administration Atenolol 25 mg 08/16/17 18:00 08/18/17 17:57 Tenormin Tab* PO 25 mg QPM MAKEDA Administration Atenolol 12.5 mg 08/16/17 09:40 08/18/17 09:37 Tenormin Tab* PO Not Given QAM MAKEDA Digoxin 0.25 mg 08/16/17 17:00 08/18/17 16:46 Lanoxin Tab* PO 0.25 mg EVERY OTHER DAY@1700 MAKEDA Administration Digoxin 0.125 mg 08/17/17 17:00 08/17/17 17:38 Lanoxin Tab* PO 0.125 mg EVERY OTHER DAY@1700 MAKEDA Administration Divalproex Sodium 500 mg 08/18/17 09:00 08/18/17 20:[address] Tab(*) PO 500 mg BID MAKEDA Administration Docusate Sodium 100 mg 08/16/17 21:07 08/16/17 21:19 Colace Cap* PO 100 mg BID PRN Administration CONSTIPATION Ceftriaxone Sodium 1,000 mg/ 50 mls @ 200 mls/hr 08/16/17 13:00 08/18/17 14: 00 Sodium Chloride IVPB 200 mls/hr Q24H MAKEDA Administration Azithromycin 500 mg/ Sodium 250 mls @ 250 mls/hr 08/16/17 13:00 08/18/17 12: 17 Chloride IVPB 250 mls/hr Q24H MAKEDA Administration Magnesium Hydroxide 30 ml 08/16/17 21:07 08/16/17 21:20 Milk Of Magnesia Liq* PO 30 ml Q6H PRN Administration CONSTIPATION Morphine Sulfate 2 mg 08/15/17 21:13 Morphine Inj (Syringe)* IV Q2H PRN SEVERE PAIN Ondansetron HCl 4 mg 08/15/17 21:08 Zofran Inj* IV Q4H PRN NAUSEA/VOMITING Oxycodone HCl 2.5 mg 08/15/17 21:13 Roxycodone Tab* PO Q4H PRN PAIN Permethrin 1 applic 08/19/17 09:00 Nix 1% Lotion* TOPICAL 08/19/17 09:01 ONCE@0900 ONE Polyethylene Glycol/Electrolytes 17 gm 08/16/17 21:07 Miralax* PO DAILY PRN CONSTIPATION
[2017-08-19] MEDS ORDERED: Permethrin 1% LOTION* 59 ML BTL TOPICAL ONE (09:00)
[2017-08-19] MEDS: Divalproex DR TAB(*) 500 MG PO SCH ×2 (10:24→21:47)
[2017-08-19] MEDS: Atenolol TAB* 25 MG PO SCH ×3 (10:24→17:49)
[2017-08-19] MEDS: Aspirin EC Low Dose* 81 MG TAB.EC PO SCH (10:24)
[2017-08-19] MEDS: cefTRIAXone VIAL(*) 1,000 MG in NS 0.9% 50 ML* 50 ML IVPB SCH (13:38)
[2017-08-19] MEDS: Azithromycin IV(*) 500 MG in NS 0.9% 250 ML* 250 ML IVPB SCH (14:17)
--- NOTE | 2017-08-19 17:26 | PN ---
Subjective Date of Service: 08/19/17 Interval History: surgery postponed. One episode overnight of confusion documented. Lice not yet treated. Sharon, TEZ weakly positive, complete workup in progress. Objective Active Medications: Acetaminophen (Tylenol Tab*) 650 mg PO Q4H PRN PRN Reason: Mild Pain Last Admin: 08/18/17 06:19 Dose: 650 mg Aspirin (Aspirin Ec Low Dose*) 81 mg PO DAILY [facility] Last Admin: 08/19/17 10:24 Dose: 81 mg Atenolol (Tenormin Tab*) 25 mg PO QPM [facility] Last Admin: 08/19/17 17:03 Dose: Not Given Atenolol (Tenormin Tab*) 12.5 mg PO QAM [facility] Last Admin: 08/19/17 10:24 Dose: 12.5 mg Digoxin (Lanoxin Tab*) 0.25 mg PO EVERY OTHER DAY@1700 [facility] Last Admin: 08/18/17 16:46 Dose: 0.25 mg Digoxin (Lanoxin Tab*) 0.125 mg PO EVERY OTHER DAY@1700 [facility] Last Admin: 08/17/17 17:38 Dose: 0.125 mg Divalproex Sodium (Depakote Dr Tab(*)) 500 mg PO BID [facility] Last Admin: 08/19/17 10:24 Dose: 500 mg Docusate Sodium (Colace Cap*) 100 mg PO BID PRN PRN Reason: CONSTIPATION Last Admin: 08/16/17 21:19 Dose: 100 mg Ceftriaxone Sodium 1,000 mg/ (Sodium Chloride) 50 mls @ 200 mls/hr IVPB Q24H [facility] Last Admin: 08/19/17 13:38 Dose: 200 mls/hr Azithromycin 500 mg/ Sodium (Chloride) 250 mls @ 250 mls/hr IVPB Q24H [facility] Last Admin: 08/19/17 14:17 Dose: 250 mls/hr Magnesium Hydroxide (Milk Of Magnesia Liq*) 30 ml PO Q6H PRN PRN Reason: CONSTIPATION Last Admin: 08/16/17 21:20 Dose: 30 ml Morphine Sulfate (Morphine Inj (Syringe)*) 2 mg IV Q2H PRN PRN Reason: SEVERE PAIN Ondansetron HCl (Zofran Inj*) 4 mg IV Q4H PRN PRN Reason: NAUSEA/VOMITING Oxycodone HCl (Roxycodone Tab*) 2.5 mg PO Q4H PRN PRN Reason: PAIN Polyethylene Glycol/Electrolytes (Miralax*) 17 gm PO DAILY PRN PRN Reason: CONSTIPATION Vital Signs 08/18/17 08/18/17 08/18/17 20:50 21:15 23:28 Temperature 98.1 F 98.2 F Pulse Rate 62 60 Respiratory 22 22 22 Rate Blood Pressure 131/55 136/58 (mmHg) O2 Sat by Pulse 86 99 Oximetry 08/19/17 08/19/17 08/19/17 03:13 06:09 07:44 Temperature 98.6 F 97.2 F Pulse Rate 60 62 Respiratory 20 20 18 Rate Blood Pressure 145/67 133/53 (mmHg) O2 Sat by Pulse 95 83 Oximetry 08/19/17 08/19/17 08/19/17 08:00 08:09 08:15 Temperature Pulse Rate Respiratory 16 18 Rate Blood Pressure (mmHg) O2 Sat by Pulse 91 Oximetry 08/19/17 08/19/17 08/19/17 11:10 11:26 15:29 Temperature 97.5 F 98.2 F Pulse Rate 61 60 Respiratory 16 18 Rate Blood Pressure 118/54 94/45 (mmHg) O2 Sat by Pulse 89 94 98 Oximetry Oxygen Devices in Use Now: Nasal Cannula Appearance: lying in bed. NAD, Eyes: No Scleral Icterus, PERRLA Respiratory: Symmetrical Chest Expansion and Respiratory Effort, Clear to Auscultation, - Cardiovascular: NL Sounds; No Murmurs; No JVD, RRR Abdominal: NL Sounds; No Tenderness; No Distention Extremities: No Edema, No Clubbing, Cyanosis, - - left leg in binder. Skin: No Rash or Ulcers Neurological: - - oriented to person, more sleepy today Result Diagrams: 08/19/17 05:38 08/19/17 05:38 Additional Lab and Data: Laboratory Results - last 24 hr 08/17/17 08/18/17 08/18/17 04:28 16:15 19:08 WBC RBC Hgb Hct MCV MCH MCHC RDW Plt Count MPV Neut % (Auto) Lymph % (Auto) [place] % (Auto) Eos % (Auto) Baso % (Auto) Absolute Neuts (auto) Absolute Lymphs (auto) Absolute Monos (auto) Absolute Eos (auto) Absolute Basos (auto) Absolute Nucleated RBC Nucleated RBC % INR (Anticoag Therapy) APTT Sodium Potassium Chloride Carbon Dioxide Anion Gap BUN Creatinine Est GFR ( Amer) Est GFR (Non-Af Amer) BUN/Creatinine Ratio Glucose Calcium Valproic Acid Blood Type A Positive Antibody Screen Negative Antibody ID ([place]ution) Cancelled Crossmatch See Detail See Detail Transfusion React Rpt 08/19/17 08/19/17 08/19/17 05:38 05:38 05:38 WBC 7.0 RBC 2.51 L Hgb 7.8 L Hct 23 L MCV 92 MCH 31 MCHC 34 RDW 15 Plt Count 121 L MPV 10 Neut % (Auto) 71.6 Lymph % (Auto) 18.0 L [place] % (Auto) 7.7 Eos % (Auto) 2.3 Baso % (Auto) 0.4 Absolute Neuts (auto) 5.0 Absolute Lymphs (auto) 1.3 Absolute Monos (auto) 0.5 Absolute Eos (auto) 0.2 Absolute Basos (auto) 0 Absolute Nucleated RBC 0 Nucleated RBC % 0 INR (Anticoag Therapy) 0.90 APTT 26.3 Sodium 134 Potassium 4.8 Chloride 104 Carbon Dioxide 29 Anion Gap 1 L BUN 22 Creatinine 1.00 H Est GFR ( Amer) 67.6 Est GFR (Non-Af Amer) 52.6 BUN/Creatinine Ratio 22.0 H Glucose 88 Calcium 9.1 Valproic Acid 89.0 Blood Type Antibody Screen Antibody ID (Elution) Crossmatch Transfusion React Rpt Microbiology and Other Data: Microbiology 08/18/17 16:15 Blood Bag Transfusion Reaction Culture - Preliminary Culture Under Incubation 08/18/17 16:15 Blood Bag Transfusion Reaction Gram Stain - Final 08/15/17 21:05 Urine Urine Culture - Final Strep Dysgalactiae (Grp C) Assess/Plan/Problems-Billing 87 yo F PMH afib (not on anticoagulation), seizure disorder(depakote) and likely mild cognitive impairment who presented to the ER after falling at home( unwitnessed, ?seizure) and was found to have a left periprosthetic femur fracture. Course c/b JOLENE(improving), hyperkalemia, possible partial seizures, anemia (getting 2u prbc). Rt basilar infiltrate on CXR. Cftx, azithromycin. Planned OR 08/19 - Patient Problems (1) Anemia Current Visit: Yes Status: Acute Code(s): D64.9 - ANEMIA, UNSPECIFIED SNOMED Code(s): 861345757 Comment: Hgb 7.8 from 8.3 (after 1u prbc) Sharon, TEZ weakly positive, complete workup in progress. Could give other 3 units if emergently needed. CBC daily (2) JOLENE (acute kidney injury) Current Visit: Yes Status: Acute Code(s): N17.9 - ACUTE KIDNEY FAILURE, UNSPECIFIED SNOMED Code(s): 50070186 Comment: Creatinine improved 1.00. (3) Hyperkalemia Current Visit: Yes Status: Acute Code(s): E87.5 - HYPERKALEMIA SNOMED Code (s): 47169873 Comment: resolved. (4) Periprosthetic fracture of shaft of femur Current Visit: Yes Status: Acute Code(s): M97.8XXA - PERIPROSTH FRACTURE AROUND OTHER INTERNAL PROSTH JOINT, INIT; Z96.649 - PRESENCE OF UNSPECIFIED ARTIFICIAL HIP JOINT SNOMED Code(s): 531121260 Comment: Needs surgery, likely 08/20 or 08/[address] Staley. Continue pain control. She will likely need STR prior to going back home. (5) Seizure disorder Current Visit: Yes Status: Acute Code(s): G40.909 - EPILEPSY, UNSP, NOT INTRACTABLE, WITHOUT STATUS EPILEPTICUS SNOMED Code(s): 932037089 Comment: Continue depakote but reduce back to 500mg bid appreciate Neuro recs. no additional agent (may be triggered by infection/trauma) (6) Hypertension Current Visit: Yes Status: Chronic Code(s): I10 - ESSENTIAL (PRIMARY) HYPERTENSION SNOMED Code(s): 71914769 Comment: Continue atenolol. (7) Paroxysmal a-fib Current Visit: Yes Status: Chronic Code(s): I48.0 - PAROXYSMAL ATRIAL FIBRILLATION SNOMED Code(s): 543218117 Comment: Currently in NSR. Pt has pacer (Medtronic VEDRO1 in [place], Rventricle). Continue digoxin. Hold parameters placed on atenolol. Pt is not on anticoagulation at baseline. (8) Lung infiltrate Current Visit: Yes Status: Acute Code(s): R91.8 - OTHER NONSPECIFIC ABNORMAL FINDING OF LUNG FIELD SNOMED Code(s): 708278880 Comment: Continue cftx for potential CAP. supplemental oxygen prn. sputum cx if starts to cough (has not been). s/p azithromycin. Status and Disposition: medicine inpatient. Planned OR 08/20 vs 08/21 pending availability of matched blood Attending: Ti Summers
[2017-08-19] MEDS ORDERED: Digoxin TAB* 0.25 MG PO SCH (17:28)
[2017-08-19] MEDS: Digoxin TAB* 0.125 MG PO SCH (17:49)
--- NOTE | 2017-08-19 23:54 | EEG ---
ELECTROENCEPHALOGRAPHY: DATE OF STUDY: 08/18/17 LOCATION: The patient is an inpatient, room 336. ORDERING PHYSICIAN: Dr. Solo. CLINICAL PROBLEM: This is an 87-year-old woman with a history of temporal lobe epilepsy who was admitted with a left femur fracture after a fall. On 08/17/17 , she was reportedly noted to have several episodes of unresponsiveness concerning for complex partial seizures. EEG is requested to evaluate for frequency of epileptiform discharges. MEDICATIONS: 1. Furosemide. 2. MiraLAX. 3. Oxycodone p.r.n. 4. Ondansetron. 5. Morphine p.r.n. 6. Milk of magnesia. 7. Acetaminophen. 8. Digoxin. 9. Ceftriaxone. 10. Azithromycin. 11. Atenolol. 12. Aspirin 81 mg. 13. Gabapentin. 14. Famotidine. 15. Heparin. 16. Depakote 500 mg twice a day. REPORT: The waking background showed appropriate organization with clearly defined anterior to posterior voltage and frequency gradients. There was a well- defined, but slow posterior dominant rhythm of 7 Hz maximally, which was symmetric. Anteriorly, there was an expected pattern of lower voltage, irregular , mixed, faster frequencies. There was frequent muscle artifact throughout much of the EEG which somewhat obscured the background, especially in the temporal regions. There was frequent , polymorphic slowing in the 2 to 5 Hz range in the left greater than right temporal regions. Intermixed within these regions of slowing, were occasional epileptiform discharges, which were more frequently noted over the left temporal region and in particular in the posterior temporal region. These discharges on the left were spike, sharp and slow wave in morphology and of high voltage. They were maximal at T5 with a field to P3 as well as T3. In addition, there were occasional independent epileptiform discharges which were noted at T6 and T4, but sometimes shifted in maximal expression more posteriorly to T6 and O2. CLINICAL IMPRESSION: This is an abnormal EEG secondary to the presence of a slow posterior dominant rhythm as well as frequent slowing and epileptiform discharges in the left greater than right temporal regions. These findings are suggestive of increased epileptic potential in the bilateral temporal regions which seems to be greater on the left. There are no seizures noted during this recording. [id number]/[facility] #: [id number] [facility]
--- NOTE | 2017-08-20 01:18 | PN ---
PROGRESS NOTE: DATE OF FOLLOWUP: 08/19/17 - ROOM #336 OVERNIGHT EVENTS: No acute overnight events. There may have been one additional seizure noted by report from the nurse last night sometime, but the documentation is not clear in the medical record. What is documented is that between 2056 and 2115 last evening, the nurse noted that the patient was having a difficult time making eye contact and was searching through the sheets "for something to drink." Her surgery was postponed secondary to a minor blood transfusion reaction yesterday. There has been no noted seizure activity by the nurse today. MEDICATIONS: Reviewed and include: 1. Aspirin 81 mg. 2. Tylenol as needed. 3. Atenolol 12.5 mg in the morning and 25 at night. 4. Azithromycin 500 mg daily. 5. Ceftriaxone 1000 mg daily. 6. Digoxin 0.25 mg every other day alternating with 0.[address] 500 mg twice daily. 8. Colace 100 mg twice daily as needed. 9. Morphine and oxycodone as needed, which she has not received. 10. She did receive gabapentin this morning, which appears to have been a one- time dose of 300 mg and it is unclear why that was ordered. PHYSICAL EXAMINATION: Vital Signs: Temperature 98.2, blood pressure 94/45, heart rate is 60, oxygen saturation is 98% on room air. I was not able to examine the patient this afternoon as she is sleeping and somewhat difficult to arouse. She will wake to voice or to light tactile stimulation but does not stay awake and falls back to sleep very quickly. LABORATORY DATA: Her EEG was completed yesterday and showed independent discharges in the bilateral temporal regions greater on the left as well as a slow posterior dominant rhythm of approximately 7, which is indicative of a mild , nonspecific, diffuse encephalopathy. There were no seizures noted during the EEG. Her total valproic acid level is 89 and the free level is pending. IMPRESSION: Lulú Nieves is an 87-year-old woman with medically intractable temporal lobe epilepsy who is in the hospital secondary to a left periprosthetic hip fracture. She may have had an additional seizure overnight, but it is not clear. She is sleepy today and this may be secondary to the gabapentin that she received this morning, which is not something that she typically takes at home. At this time, I would recommend continuing with her current Depakote dose. I have spoken with the nurse today, described typical presentation of temporal lobe seizures and asked to be called if there are any further episodes. I would hold off on giving her any further gabapentin since this may have caused the sedation we are seeing today and I am not clear why this medication was given this morning. [id number] #: [id number] [facility]D
[2017-08-20 06:02] LABS: Hematocrit 23 % (35-47); Hemoglobin 7.6 g/dl (12.0-16.0); Mean Corpuscular HGB Conc 33 g/dl (31-36); Mean Corpuscular Hemoglobin 31 pg (27-31); Mean Corpuscular Volume 93 fL (80-97); Mean Platelet Volume 10 um3 (7.4-10.4); Red Blood Count 2.44 10^6/ul (4.0-5.4); Red Cell Distribution Width 15 % (10.5-15); White Blood Count 5.4 10^3/ul (3.5-10.8)
[2017-08-20 06:15] LABS: Calcium 9.2 mg/dL (8.6-10.3); EGFR African American 59.9 (>60); EGFR Non-African American 46.6 (>60)
[2017-08-20 06:33] LABS: Potassium 5.2 mmol/L (3.5-5.0)
[2017-08-20] MEDS: Aspirin EC Low Dose* 81 MG TAB.EC PO SCH (09:46)
[2017-08-20] MEDS: Atenolol TAB* 25 MG PO SCH (09:47)
[2017-08-20] MEDS: Divalproex DR TAB(*) 500 MG PO SCH ×2 (10:13→22:16)
--- NOTE | 2017-08-20 10:31 | PN ---
Subjective Date of Service: 08/20/17 Interval History: Patient seen this morning. Reports no complaints. Denies pain or discomfort. Understands she is here with a fractured leg and that we will plan for surgery today. Spoke with blood bank who states they have appropriate blood for her when ordered. No seizure activity noted overnight. Family History: Unchanged from Admission Social History: Unchanged from Admission Past Medical History: Unchanged from Admission Objective Active Medications: Acetaminophen (Tylenol Tab*) 650 mg PO Q4H PRN Aspirin (Aspirin Ec Low Dose*) 81 mg PO DAILY MAKEDA Atenolol (Tenormin Tab*) 12.5 mg PO QAM MAKEDA Atenolol (Tenormin Tab*) 25 mg PO QPM MAKEDA Digoxin (Lanoxin Tab*) 0.125 mg PO EVERY OTHER DAY@1700 MAKEDA Digoxin (Lanoxin Tab*) 0.25 mg PO EVERY OTHER DAY@1700 MAKEDA Divalproex Sodium (Depakote Dr Tab(*)) 500 mg PO BID MAKEDA Docusate Sodium (Colace Cap*) 100 mg PO BID PRN Ceftriaxone Sodium 1,000 mg/ (Sodium Chloride) 50 mls @ 200 mls/hr IVPB Q24H MAKEDA Magnesium Hydroxide (Milk Of Magnesia Liq*) 30 ml PO Q6H PRN Morphine Sulfate (Morphine Inj (Syringe)*) 2 mg IV Q2H PRN Ondansetron HCl (Zofran Inj*) 4 mg IV Q4H PRN Oxycodone HCl (Roxycodone Tab*) 2.5 mg PO Q4H PRN Polyethylene Glycol/Electrolytes (Miralax*) 17 gm PO DAILY PRN Vital Signs 08/19/17 08/19/17 08/19/17 11:10 11:26 15:29 Temperature 97.5 F 98.2 F Pulse Rate 61 60 Respiratory 16 18 Rate Blood Pressure 118/54 94/45 (mmHg) O2 Sat by Pulse 89 94 98 Oximetry 08/19/17 08/19/17 08/19/17 17:49 20:12 22:02 Temperature 97.7 F Pulse Rate 58 62 Respiratory 18 20 Rate Blood Pressure 87/45 (mmHg) O2 Sat by Pulse 97 Oximetry 08/19/17 08/19/17 08/20/17 23:31 23:33 03:43 Temperature 99.1 F Pulse Rate 60 61 122 Respiratory 16 16 Rate Blood Pressure 111/49 116/49 (mmHg) O2 Sat by Pulse 99 95 Oximetry 08/20/17 08/20/17 07:23 08:15 Temperature 97.5 F Pulse Rate 61 Respiratory 13 16 Rate Blood Pressure 111/60 (mmHg) O2 Sat by Pulse 97 Oximetry Oxygen Devices in Use Now: Nasal Cannula - 4L Appearance: Elderly, F, laying in bed in NAD Eyes: No Scleral Icterus Ears/Nose/Mouth/Throat: - - Dry MM Neck: NL Appearance and Movements; NL JVP Respiratory: Symmetrical Chest Expansion and Respiratory Effort, Clear to Auscultation - in anterior and lateral roman Cardiovascular: NL Sounds; No Murmurs; No JVD, RRR Abdominal: NL Sounds; No Tenderness; No Distention Lymphatic: No Cervical Adenopathy Extremities: No Edema, - - L knee immobilizer in place Skin: No Rash or Ulcers Neurological: - - Alert, oriented to self, place, could not tell me year, "dumb trump" when asked who the president is Result Diagrams: 08/20/17 05:42 08/20/17 05:42 Assess/Plan/Problems-Billing 87 yo F PMH afib (not on anticoagulation), seizure disorder(depakote) and likely mild cognitive impairment who presented to the ER after falling at home( unwitnessed, ?seizure) and was found to have a left periprosthetic femur fracture. Course c/b JOLENE(improving), hyperkalemia, possible partial seizures, anemia, ?transfusion reaction. Rt basilar infiltrate on CXR. Cftx, azithromycin. - Patient Problems (1) Anemia Current Visit: Yes Comment: Hgb 7.6 this AM Sharon, TEZ weakly positive, complete workup in progress. Spoke with blood bank this morning who states they have appropriate blood available at this time. Contacted by surgery that anesthesia wanted to start 2 units now, ordered. (2) Periprosthetic fracture of shaft of femur Current Visit: Yes SNOMED Code(s): 457413183 Comment: Plan for surgery 08/[address] Staley. Continue pain control. She will likely need STR prior to going back home. (3) JOLENE (acute kidney injury) Current Visit: Yes Comment: Creatinine up a bit at 1.11, continue to monitor (4) Hyperkalemia Current Visit: Yes Status: Acute Code(s): E87.5 - HYPERKALEMIA SNOMED Code (s): 85049187 Comment: resolved. (5) Seizure disorder Current Visit: Yes Comment: Continue depakote but reduce back to 500mg bid appreciate Neuro recs. no additional agent (may be triggered by infection/trauma) (6) Hypertension Current Visit: Yes Comment: Continue atenolol. (7) Paroxysmal a-fib Current Visit: Yes Comment: Currently in NSR. Pt has pacer (Medtronic VEDRO1 in Ratrium, Rventricle). Continue digoxin. Hold parameters placed on atenolol. Pt is not on anticoagulation at baseline. (8) Lung infiltrate Current Visit: Yes Comment: Continue CTX for potential CAP (Day 5). supplemental oxygen prn. sputum cx if starts to cough (has not been). s/p azithromycin. (9) DVT prophylaxis Current Visit: Yes Status: Acute Code(s): QBM0588 - SNOMED Code(s): 283114267 Comment: SQ heparin Status and Disposition: medicine inpatient. Planned OR 08/20
[2017-08-20] MEDS: cefTRIAXone VIAL(*) 1,000 MG in NS 0.9% 50 ML* 50 ML IVPB SCH (12:11)
--- NOTE | 2017-08-20 15:31 | PN ---
Progress Note - Progress Note Date of Service: 08/20/17 Note: I have spoken with her son Ed and other family members today. They understand that she is high risk and their is a change of perioperative mortality. Cardiology has seen her and evaluated her pacemaker. Neurology has seen her for her seizure disorder. She has been cleared from a blood transfusion standpoint. We will have blood available. The plan is for open reduction internal fixation left periprosthetic femur fracture.
[2017-08-20] MEDS ORDERED: Buffered Lidocaine 0.9% SYRIN* 5 ML/SYR SYRINGE INTRADERM ONE (15:48)
[2017-08-20] MEDS ORDERED: Acetaminophen TAB* 325 MG PO PRN (15:50)
[2017-08-20] MEDS ORDERED: Ondansetron INJ* 2 MG/ML VIAL IV PRN ×2 (15:50→20:11)
[2017-08-20] MEDS ORDERED: fentaNYL* 50 MCG/ML 2 ML VIAL (100 MCG VIAL) IV PRN (15:50)
[2017-08-20] MEDS ORDERED: NS 0.9% 1000 ML* 1,000 ML IV SCH ×2 (16:00→22:15)
[2017-08-20] MEDS ORDERED: Famotidine IV* 10 MG/ML 2 ML (20 mg) ONE ×2 (16:48→16:56)
[2017-08-20] MEDS ORDERED: fentaNYL* 50 MCG/ML 2 ML VIAL (100 MCG VIAL) ONE (16:49)
[2017-08-20] MEDS ORDERED: Midazolam* 1 MG/ML 2 ML VIAL (2 MG) ONE (16:49)
[2017-08-20] MEDS ORDERED: Dexamethasone IV* 4 MG/ML 1 ML (4 MG) ONE ×2 (16:56→17:52)
[2017-08-20] MEDS ORDERED: Cisatracurium* 2 MG/ML MDV 5 ML ONE (16:56)
[2017-08-20] MEDS ORDERED: Propofol* 10 MG/ML 20 ML BTL IV PUSH ONE (16:56)
[2017-08-20] MEDS ORDERED: Lidocaine 2% PF * 5 ML VIAL ONE (16:56)
[2017-08-20] MEDS ORDERED: Desflurane* 240 ML INH ONE (16:59)
[2017-08-20] MEDS ORDERED: CeFAZolin 1 GM PREMIX(*) 1 GM BAG (REFRIGERATE) IVPB ONE (17:01)
[2017-08-20] MEDS ORDERED: EPHEDrine (Pressors)* 50 MG/ML VIAL ONE (17:52)
[2017-08-20] MEDS ORDERED: diPHENhydraMINE IV* 50 MG/ML 1 ml VIAL (BENADRYL) IV PRN (20:11)
--- NOTE | 2017-08-20 21:53 | RAD ---
INDICATION: Traumatic periprosthetic fracture of the left femur operative reduction internal fixation. COMPARISON: Comparison is made with a prior x-ray study of the left femur from August 15, 2017. TECHNIQUE: 16.8 seconds of intermitted fluoroscopic were provided and 9 spot images of the left femur were obtained in the operating room. FINDINGS: The films demonstrate placement of a metallic side plate present along the lateral aspect of the left femur transfixed with multiple screws stabilizing the periprosthetic fracture. IMPRESSION: INTRAOPERATIVE CONTROL FILMS. CPT II Codes: 6045F
[2017-08-21] MEDS: Atenolol TAB* 25 MG PO SCH ×3 (03:59→17:53)
[2017-08-21] MEDS: Digoxin TAB* 0.25 MG PO SCH (03:59)
[2017-08-21 05:21] LABS: Hematocrit 25 % (35-47); Hemoglobin 8.2 g/dl (12.0-16.0); Mean Corpuscular HGB Conc 33 g/dl (31-36); Mean Corpuscular Hemoglobin 31 pg (27-31); Mean Corpuscular Volume 94 fL (80-97); Mean Platelet Volume 10 um3 (7.4-10.4); Red Blood Count 2.67 10^6/ul (4.0-5.4); Red Cell Distribution Width 15 % (10.5-15); White Blood Count 9.9 10^3/ul (3.5-10.8)
[2017-08-21 05:32] LABS: BUN/Creatinine Ratio 26.1 (8-20); Calcium 8.8 mg/dL (8.6-10.3); EGFR African American 55.3 (>60)
[2017-08-21 05:38] LABS: Potassium 5.2 mmol/L (3.5-5.0)
[2017-08-21] MEDS: Divalproex DR TAB(*) 500 MG PO SCH ×2 (09:00→21:06)
[2017-08-21] MEDS: Aspirin EC Low Dose* 81 MG TAB.EC PO SCH (09:01)
--- NOTE | 2017-08-21 09:08 | PN ---
Progress Note - Progress Note Date of Service: 08/21/17 SOAP: Subjective: []Patient seen out of bed in chair. No currently complaint of pain. She has been tolerating fluids well and will progress to a regular diet at lunchtime. Shelby is in place with poor urine output. Pain has been well controlled. Denies shortness of breath, chest pain, nausea, numbness of lower extremities. Objective: [] Vital Signs Temp 97.7 F 08/21/17 08:00 Pulse 62 08/21/17 06:00 Resp 19 08/21/17 08:00 BP 113/52 08/21/17 06:00 Pulse Ox 99 08/21/17 08:00 Intake & Output 08/20/17 08/21/17 08/21/17 18:59 06:59 18:59 Intake Total 0 2049 Output Total 275 675 Balance -275 1374 Intake: IV Fluids 9 NS 800 NS (0.9%) 1199 NS 50ML, Cefazolin 1G 50 Oral 0 0 Output: Shelby 275 525 Estimated Blood Loss 150 Laboratory Last Values WBC 9.9 10^3/ul (3.5-10.8) 08/21/17 05:05 RBC 2.67 10^6/ul (4.0-5.4) L 08/21/17 05:05 Hgb 8.2 g/dl (12.0-16.0) L 08/21/17 05:05 Hct 25 % (35-47) L 08/21/17 05:05 MCV 94 fL (80-97) 08/21/17 05:05 MCH 31 pg (27-31) 08/21/17 05:05 MCHC 33 g/dl (31-36) 08/21/17 05:05 RDW 15 % (10.5-15) 08/21/17 05:05 Plt Count 127 10^3/ul (150-450) L 08/21/17 05:05 MPV 10 um3 (7.4-10.4) 08/21/17 05:05 Neut % (Auto) 86.0 % (38-83) H 08/21/17 05:05 Lymph % (Auto) 6.3 % (25-47) L 08/21/17 05:05 Dolores % (Auto) 7.5 % (1-9) 08/21/17 05:05 Eos % (Auto) 0 % (0-6) 08/21/17 05:05 Baso % (Auto) 0.2 % (0-2) 08/21/17 05:05 Absolute Neuts (auto) 8.5 10^3/ul (1.5-7.7) H 08/21/17 05:05 Absolute Lymphs (auto) 0.6 10^3/ul (1.0-4.8) L 08/21/17 05:05 Absolute Monos (auto) 0.7 10^3/ul (0-0.8) 08/21/17 05:05 Absolute Eos (auto) 0 10^3/ul (0-0.6) 08/21/17 05:05 Absolute Basos (auto) 0 10^3/ul (0-0.2) 08/21/17 05:05 Absolute Nucleated RBC 0 10^3/ul 08/21/17 05:05 Nucleated RBC % 0 08/21/17 05:05 INR (Anticoag Therapy) 0.90 (0.89-1.11) 08/19/17 05:38 APTT 26.3 seconds (26.0-36.3) 08/19/17 05:38 Sodium 133 mmol/L (133-145) 08/21/17 05:05 Potassium 5.2 mmol/L (3.5-5.0) H 08/21/17 05:05 Chloride 104 mmol/L (101-111) 08/21/17 05:05 Carbon Dioxide 24 mmol/L (22-32) 08/21/17 05:05 Anion Gap 5 mmol/L (2-11) 08/21/17 05:05 BUN 31 mg/dL (6-24) H 08/21/17 05:05 Creatinine 1.19 mg/dL (0.51-0.95) H 08/21/17 05:05 Est GFR ( Amer) 55.3 (>60) 08/21/17 05:05 Est GFR (Non-Af Amer) 43.0 (>60) 08/21/17 05:05 BUN/Creatinine Ratio 26.1 (8-20) H 08/21/17 05:05 Glucose 165 mg/dL (70-100) H 08/21/17 05:05 POC Glucose (mg/dL) 120 mg/dL (70-100) H 08/16/17 12:19 Lactic Acid 0.9 mmol/L (0.5-2.0) 08/15/17 18:28 Calcium 8.8 mg/dL (8.6-10.3) 08/21/17 05:05 Magnesium 1.9 mg/dL (1.9-2.7) 08/15/17 18:28 Total Bilirubin 0.20 mg/dL (0.2-1.0) 08/18/17 16:15 AST 24 U/L (13-39) 08/15/17 18:28 ALT 14 U/L (7-52) 08/15/17 18:28 Alkaline Phosphatase 54 U/L (34-104) 08/15/17 18:28 Total Protein 8.7 g/dL (6.4-8.9) 08/15/17 18:28 Albumin 3.0 g/dL (3.2-5.2) L 08/15/17 18:28 Globulin 5.7 g/dL (2-4) H 08/15/17 18:28 Albumin/Globulin Ratio 0.5 (1-3) L 08/15/17 18:28 TSH 2.85 mcIU/mL (0.34-5.60) 08/15/17 18:28 Urine Color Yellow 08/18/17 16:15 Urine Appearance Clear 08/18/17 16:15 Urine pH 5.0 (5-9) 08/18/17 16:15 Ur Specific [place] 1.012 (1.010-1.030) 08/18/17 16:15 Urine Protein Negative (Negative) 08/18/17 16:15 Urine Ketones Negative (Negative) 08/18/17 16:15 Urine Blood 1+ (Negative) H 08/18/17 16:15 Urine Nitrate Negative (Negative) 08/18/17 16:15 Urine Bilirubin Negative (Negative) 08/18/17 16:15 Urine Urobilinogen Negative (Negative) 08/18/17 16:15 Ur Leukocyte Esterase Trace (Negative) H 08/18/17 16:15 Urine WBC (Auto) 1+(6-10/hpf) (Absent) H 08/18/17 16:15 Urine RBC (Auto) 1+(3-5/hpf) (Absent) H 08/18/17 16:15 Ur Squamous Epith Cells Present (Absent) H 08/18/17 16:15 Ur Renal Epithelial Cell Present (Absent) H 08/15/17 21:05 Urine Bacteria 1+ (Absent) H 08/18/17 16:15 Hyaline Casts Present (Absent) H 08/15/17 21:05 Urine Glucose Negative (Negative) 08/18/17 16:15 Digoxin 0.9 ng/ml (0.8-2.0) 08/15/17 18:28 Valproic Acid 89.0 mcg/mL (50-100) 08/19/17 05:38 Blood Type A Positive 08/20/17 05:42 Antibody Screen Negative 08/20/17 05:42 Antibody ID (Elution) Cancelled 08/18/17 19:08 Crossmatch See Detail 08/20/17 05:42 Transfusion React Rpt 08/20/17 18:15 Donor Unit # [id number] 08/20/17 18:15 Post-Trans Blood Type A Positive 08/20/17 18:15 Post-Trans TEZ 2+ 08/20/17 18:15 Reaction Interpretation 08/20/17 18:15 General: In chair, working with PT. Responds to verbal prompts/ follows commands roughly 50% of the time- baseline vs confusion vs hard of hearing LLE: Dressing is clean, dry and intact. No erythema surrounding dressing. Bilateral lower extremities: Calves are supple and nontender without erythema, edema or palpable cords. Patient is able to wiggle toes. Plantarflexion intact, unable to follow instruction to dorsiflex. Negative Obinna's sign. Sensation is intact to light touch throughout lower extremities. 1+ PT/DP pulses. Brisk capillary refill of toes. Assessment: []ORIF Left Periprosthetic Femur Fracture Plan: []WBAT PT/OT Comanaged by hospitalist Will be moved back to [facility] today Heparin H&H improved with transfusion from yesterday. Able to receive additional blood if needed.
--- NOTE | 2017-08-21 09:40 | PN ---
Subjective Date of Service: 08/21/17 Interval History: Patient seen this morning. Does not recall having surgery yesterday. No complaints today, denies pain, SOB. As per nursing UOP overnight has been poor, PO intake has not been great. Apparently had another change in BP with transfusion yesterday prior to surgery prompting another transfusion reaction work-up. Spoke with Dr. Baca this morning who states she likely has a clinically insignificant autoantibody that is not causing significant reactions or hemolysis and that we should not hesitate to give additional blood as needed. Family History: Unchanged from Admission Social History: Unchanged from Admission Past Medical History: Unchanged from Admission Objective Active Medications: Acetaminophen (Tylenol Tab*) 650 mg PO Q4H PRN Aspirin (Aspirin Ec Low Dose*) 81 mg PO DAILY MAKEDA Atenolol (Tenormin Tab*) 12.5 mg PO QAM MAKEDA Atenolol (Tenormin Tab*) 25 mg PO QPM MAKEDA Digoxin (Lanoxin Tab*) 0.125 mg PO EVERY OTHER DAY@1700 MAKEDA Digoxin (Lanoxin Tab*) 0.25 mg PO EVERY OTHER DAY@1700 MAKEDA Diphenhydramine HCl (Benadryl Iv*) 25 mg IV Q6H PRN Divalproex Sodium (Depakote Dr Tab(*)) 500 mg PO BID MAKEDA Docusate Sodium (Colace Cap*) 100 mg PO BID PRN Heparin Sodium (Porcine) (Heparin Vial(*)) 5,000 units SUBCUT Q12HR MAKEDA Ceftriaxone Sodium 1,000 mg/ (Sodium Chloride) 50 mls @ 200 mls/hr IVPB Q24H [facility] Sodium Chloride (Ns 0.9% 1000 Ml*) 1,000 mls @ 100 mls/hr IV PER RATE MAKEDA Magnesium Hydroxide (Milk Of Magnesia Liq*) 30 ml PO Q6H PRN Morphine Sulfate (Morphine Inj (Syringe)*) 2 mg IV Q2H PRN Ondansetron HCl (Zofran Inj*) 4 mg IV Q4H PRN Ondansetron HCl (Zofran Inj*) 4 mg IV Q6H PRN Oxycodone HCl (Roxycodone Tab*) 2.5 mg PO Q4H PRN Polyethylene Glycol/Electrolytes (Miralax*) 17 gm PO DAILY PRN Vital Signs 08/20/17 08/20/17 08/20/17 11:38 11:58 20:10 Temperature 98.7 F 97.2 F Pulse Rate 114 59 84 Respiratory 14 16 Rate Blood Pressure 114/57 106/78 (mmHg) O2 Sat by Pulse 88 100 95 Oximetry 08/20/17 08/20/17 08/20/17 23:24 23:30 23:42 Temperature 97.2 F Pulse Rate 72 68 Respiratory 21 15 Rate Blood Pressure 122/55 109/53 (mmHg) O2 Sat by Pulse 91 97 Oximetry 08/21/17 08/21/17 08/21/17 04:00 05:00 06:00 Temperature 99.1 F Pulse Rate 67 62 62 Respiratory 20 16 17 Rate Blood Pressure 108/50 100/46 113/52 (mmHg) O2 Sat by Pulse 96 96 99 Oximetry Oxygen Devices in Use Now: Nasal Cannula - 3L Appearance: Elderly, F, laying in bed in NAD Eyes: No Scleral Icterus Ears/Nose/Mouth/Throat: - - Dry MM Neck: NL Appearance and Movements; NL JVP Respiratory: Symmetrical Chest Expansion and Respiratory Effort, Clear to Auscultation Cardiovascular: NL Sounds; No Murmurs; No JVD, RRR Abdominal: NL Sounds; No Tenderness; No Distention Lymphatic: No Cervical Adenopathy Extremities: No Edema, - - L hip with dressing in place, c/d/i Skin: No Rash or Ulcers Neurological: - - Alert, oriented to self and place, slightly confused about circumstances, no focal deficits Result Diagrams: 08/21/17 05:05 08/21/17 05:05 Additional Lab and Data: . Microbiology and Other Data: . Assess/Plan/Problems-Billing 87 yo F PMH afib (not on anticoagulation), seizure disorder(depakote) and likely mild cognitive impairment who presented to the ER after falling at home( unwitnessed, ?seizure) and was found to have a left periprosthetic femur fracture. Course c/b JOLENE(improving), hyperkalemia, possible partial seizures, anemia, ?transfusion reaction. Rt basilar infiltrate on CXR. Cftx, azithromycin. - Patient Problems (1) Anemia Current Visit: Yes Comment: Hgb 8.2 this AM Sharon, TEZ weakly positive. Spoke with Dr. Baca who states patient likely has clinically insignificant auto-antibody and we should transfuse as needed as with any other patient. (2) Periprosthetic fracture of shaft of femur Current Visit: Yes SNOMED Code(s): 987168052 Comment: Appreciate Ortho assistance, s/p ORIF on 08/20. Continue pain control. She will likely need STR prior to going back home. (3) JOLENE (acute kidney injury) Current Visit: Yes Comment: Creatinine continues to trend up, poor PO intake and UOP, will increase NS to 100 cc/hr (4) Hyperkalemia Current Visit: Yes Status: Acute Code(s): E87.5 - HYPERKALEMIA SNOMED Code (s): 84936483 Comment: Mild, monitor (5) Seizure disorder Current Visit: Yes Comment: Continue depakote but reduce back to 500mg bid appreciate Neuro recs. no additional agent (may be triggered by infection/trauma) (6) Hypertension Current Visit: Yes Comment: Continue atenolol with hold parameters (7) Paroxysmal a-fib Current Visit: Yes Comment: Currently in NSR. Pt has pacer (Medtronic VEDRO1 in Ratrium, Rventricle). Continue digoxin. Hold parameters placed on atenolol. Pt is not on anticoagulation at baseline. (8) Lung infiltrate Current Visit: Yes Comment: Continue CTX for potential CAP (Day 6/7). supplemental oxygen prn. sputum cx if starts to cough (has not been). s/p azithromycin. (9) DVT prophylaxis Current Visit: Yes Status: Acute Code(s): PEC6824 - SNOMED Code(s): 426187272 Comment: SQ heparin Status and Disposition: medicine inpatient. OR on 08/20 for ORIF, transfer to [facility] from ICU today
[2017-08-21] MEDS: Heparin VIAL(*) 5000 UNITS/ML VIAL (FIVE THOUSAND) SUBCUT SCH ×2 (10:23→21:05)
--- NOTE | 2017-08-21 10:58 | OP ---
DATE OF OPERATION: 08/20/17 - ROOM #335 DATE OF : 32 SURGEON: Jaylen Staley MD PROFILE SHAPER OPERATOR: BHARGAV Najera; BHARGAV Barroso. An assistant store leader was needed for the entire procedure to aid in positioning of the patient, holding the leg, retraction, instrumentation, and reduction. ANESTHESIOLOGIST: Dr. Reddy. ANESTHESIA: General. PRE-OP DIAGNOSIS: Left femur periprosthetic femoral shaft fracture with stable hip implant. POST-OP DIAGNOSIS: Left femur periprosthetic femoral shaft fracture with stable hip implant. OPERATIVE PROCEDURE: Open reduction and internal fixation left femoral shaft periprosthetic fracture. IMPLANTS: Synthes femoral plate, screws, and cerclage wires. INDICATIONS: Lulú fell and fractured the left femur right at the tip of the femoral implant. The implant look stable on x-ray. I have talked to her and her son and other family members about risks and benefits including the risks of perioperative mortality. They understood the risk. They wished to proceed with stabilization of the femur. ESTIMATED BLOOD LOSS: 150 mL. COMPLICATIONS: None. FINDINGS: As expected. DESCRIPTION OF PROCEDURE: Lulú was seen in the preoperative holding area. The correct side, site, and procedure were identified. We came back to the operating room where anesthesia was induced. She was placed on the flattop table in the lateral decubitus position. The leg was prescrubbed and then prepped and draped in the usual fashion. A time-out was performed. I began by making a longitudinal incision along the lateral aspect of the left upper leg, utilizing approximately her prior total hip incision. Dissection was carried down to the subcutaneous tissue with the Bovie. All bleeders were cauterized. The tensor fascia kathy was split. The vastus lateralis was raised anteriorly off the lateral intramuscular septum. The perforators were cauterized. Hohmann retractors were placed around the femur. The fracture was cleaned of its fracture hematoma. Two lobster claw reduction clamps were used to reduce the fracture with the system puling traction. Once the anatomic reduction was achieved two 4.5 mm lag screws were placed. There was anatomic reduction and it was very stable. I then brought in my Synthes femoral shaft plate. I sized and selected a 15-hole plate. The plate was bent with a plate del valle until it laid nicely on the bone. I fixed it with 1 bicortical screw distally and then clamped it in place proximally and fixed it proximally with 2 cerclage wires utilizing the gromots threaded into the locking holes. I then placed multiple unicortical locking screws proximally. I came distally and placed a few more screws including a couple more cortical screws then locking screws in the two most distal holes. The fluoroscopy was checked and everything looked good. The position of the plate was nice. The screw lengths were nice. The reduction was anatomic. The wound was then copiously irrigated out. The tensor fascia kathy was closed with 0-Vicryl suture. Subcutaneous tissue is reapproximated 2-0 Vicryl sutures. Skin is closed with andrea. The wound was infiltrated with 0.25% plain Marcaine. The wound was dressed with Xeroform, 4x4s ABDs, and foam tape. She was then woken up and taken to the recovery room. [id number] #: [id number] HIGINIO
[2017-08-21 11:27] LABS: Hematocrit 23 % (35-47); Hemoglobin 7.6 g/dl (12.0-16.0); Mean Corpuscular HGB Conc 33 g/dl (31-36); Mean Corpuscular Hemoglobin 31 pg (27-31); Mean Corpuscular Volume 94 fL (80-97); Mean Platelet Volume 10 um3 (7.4-10.4); Red Blood Count 2.43 10^6/ul (4.0-5.4); Red Cell Distribution Width 16 % (10.5-15); White Blood Count 8.7 10^3/ul (3.5-10.8)
[2017-08-21 11:49] LABS: EGFR African American 49.9 (>60); EGFR Non-African American 38.8 (>60)
[2017-08-21] MEDS: NS 0.9% 1000 ML* 1,000 ML IV SCH (13:45)
[2017-08-21] MEDS: cefTRIAXone VIAL(*) 1,000 MG in NS 0.9% 50 ML* 50 ML IVPB SCH (13:57)
[2017-08-21] MEDS: Digoxin TAB* 0.125 MG PO SCH (18:01)
--- NOTE | 2017-08-21 23:37 | PN ---
PROGRESS NOTE: DATE OF FOLLOWUP: 08/21/17 OVERNIGHT EVENTS: The patient had repair of her hip fracture yesterday. She spent the night in ICU and has since been transferred back to the short-stay unit. There had been no seizures reported. She is currently denying pain, but she does seem confused and keeps saying "what is this" as she is grabbing her blanket. She states that she needs to get up and go home tonight and that her brother or her will pick her up. MEDICATIONS: Reviewed and the list is not inclusive, but includes: 1. Divalproex DR 500 mg twice daily. 2. Atenolol 12.5 mg in the morning, 25 mg at night. 3. Aspirin 81 mg daily. 4. Digoxin 0.125 mg alternating with 0.25 mg every other day. 5. Oxycodone 2.5 mg q.4 hours p.r.n. pain, which she last received at 10:20 this morning. PHYSICAL EXAMINATION: Vital Signs: Temperature 98.2, blood pressure 100/48, heart rate 62, oxygen saturation 93% on 3 L nasal cannula. On exam, the patient is sitting in the chair beside her hospital bed. She is fully awake. She denies having any knowledge of breakthrough seizures. Her face is symmetric. Her speech is clear. As mentioned in the HPI, she is currently confused. She was not able to state her date of aside from the month. She is not able to state the year. LABORATORY DATA: Shows a stable hematocrit of 23. BMP shows potassium of 5.2, BUN elevated at 31, and creatinine elevated at 1.19 and then when rechecked at 11:15 this morning 1.30. IMPRESSION: Lulú Nieves is an 87-year-old woman with a history of intractable temporal lobe epilepsy, treated with Depakote, admitted to the hospital for left hip fracture repair. There have been no reported seizures overnight. She currently has some delirium in the postoperative setting. Her pain is being managed with a low dose of narcotics, which may be contributing to her encephalopathy. I contacted the lab since I requested a free valproic acid level 2 days ago, but it appears this has been canceled. This has been re- ordered and we will follow up this level to make sure that the free level is not in the toxic range. At this point, I would continue her current antiseizure medication regimen and continue to monitor for any breakthrough seizures. [id number]/[facility] #: [id number] HIGINIO
[2017-08-22] MEDS: NS 0.9% 1000 ML* 1,000 ML IV SCH (00:21)
[2017-08-22 06:52] LABS: Hematocrit 18 % (35-47); Mean Corpuscular HGB Conc 34 g/dl (31-36); Mean Corpuscular Hemoglobin 31 pg (27-31); Mean Corpuscular Volume 93 fL (80-97); Mean Platelet Volume 10 um3 (7.4-10.4); Red Blood Count 1.94 10^6/ul (4.0-5.4); Red Cell Distribution Width 15 % (10.5-15); White Blood Count 8.4 10^3/ul (3.5-10.8)
[2017-08-22 06:53] LABS: Comments Flag Yes
[2017-08-22 06:59] LABS: Hemoglobin 6.1 g/dl (12.0-16.0)
[2017-08-22 07:00] LABS: Add Diff/Slide Review? Slide Review Added
[2017-08-22 07:04] LABS: Calcium 8.4 mg/dL (8.6-10.3); EGFR African American 67.6 (>60); EGFR Non-African American 52.6 (>60); Potassium 4.5 mmol/L (3.5-5.0)
--- NOTE | 2017-08-22 08:19 | PN ---
Progress Note - Progress Note Date of Service: 08/22/17 SOAP: Subjective: []Patient seen at bedside. She is mildly confused but is able to follow some commands and answer some questions appropriately. She denies operative site pain , shortness of breath and chest pain. Objective: [] Vital Signs Temp 97.9 F 08/22/17 07:22 Pulse 80 08/22/17 07:22 Resp 20 08/22/17 07:37 BP 122/51 08/22/17 07:22 Pulse Ox 95 08/22/17 07:37 Intake & Output 08/21/17 08/22/17 08/22/17 18:59 06:59 18:59 Intake Total 1054 1446 Output Total 125 200 Balance 929 1246 Intake: IV Fluids 1026 ABX - CEFTRIAXONE 50 NS (0.9%) 976 IVPB 619 ABX - CEFTRIAXONE 50 NS (0.9%) 569 Oral 435 420 Output: Urine 0 Shelby 125 200 Other: Estimated Void Large # Bowel Movements 0 # Voids 1 Laboratory Last Values WBC 8.4 10^3/ul (3.5-10.8) 08/22/17 06:01 RBC 1.94 10^6/ul (4.0-5.4) L 08/22/17 06:01 Hgb 6.1 g/dl (12.0-16.0) L* 08/22/17 06:01 Hct 18 % (35-47) L 08/22/17 06:01 MCV 93 fL (80-97) 08/22/17 06:01 MCH 31 pg (27-31) 08/22/17 06:01 MCHC 34 g/dl (31-36) 08/22/17 06:01 RDW 15 % (10.5-15) 08/22/17 06:01 Plt Count 120 10^3/ul (150-450) L 08/22/17 06:01 MPV 10 um3 (7.4-10.4) 08/22/17 06:01 Neut % (Auto) 80.2 % (38-83) 08/22/17 06:01 Lymph % (Auto) 11.1 % (25-47) L 08/22/17 06:01 [place] % (Auto) 8.3 % (1-9) 08/22/17 06:01 Eos % (Auto) 0.1 % (0-6) 08/22/17 06:01 Baso % (Auto) 0.3 % (0-2) 08/22/17 06:01 Absolute Neuts (auto) 6.7 10^3/ul (1.5-7.7) 08/22/17 06:01 Absolute Lymphs (auto) 0.9 10^3/ul (1.0-4.8) L 08/22/17 06:01 Absolute Monos (auto) 0.7 10^3/ul (0-0.8) 08/22/17 06:01 Absolute Eos (auto) 0 10^3/ul (0-0.6) 08/22/17 06:01 Absolute Basos (auto) 0 10^3/ul (0-0.2) 08/22/17 06:01 Absolute Nucleated RBC 0.01 10^3/ul 08/22/17 06:01 Nucleated RBC % 0.1 08/22/17 06:01 INR (Anticoag Therapy) 0.94 (0.89-1.11) 08/21/17 11:16 APTT 27.0 seconds (26.0-36.3) 08/21/17 11:16 Sodium 134 mmol/L (133-145) 08/22/17 06:01 Potassium 4.5 mmol/L (3.5-5.0) 08/22/17 06:01 Chloride 107 mmol/L (101-111) 08/22/17 06:01 Carbon Dioxide 25 mmol/L (22-32) 08/22/17 06:01 Anion Gap 2 mmol/L (2-11) 08/22/17 06:01 BUN 31 mg/dL (6-24) H 08/22/17 06:01 Creatinine 1.00 mg/dL (0.51-0.95) H 08/22/17 06:01 Est GFR ( Amer) 67.6 (>60) 08/22/17 06:01 Est GFR (Non-Af Amer) 52.6 (>60) 08/22/17 06:01 BUN/Creatinine Ratio 31.0 (8-20) H 08/22/17 06:01 Glucose 96 mg/dL (70-100) 08/22/17 06:01 POC Glucose (mg/dL) 120 mg/dL (70-100) H 08/16/17 12:19 Lactic Acid 0.9 mmol/L (0.5-2.0) 08/15/17 18:28 Calcium 8.4 mg/dL (8.6-10.3) L 08/22/17 06:01 Magnesium 1.9 mg/dL (1.9-2.7) 08/15/17 18:28 Total Bilirubin 0.20 mg/dL (0.2-1.0) 08/18/17 16:15 AST 24 U/L (13-39) 08/15/17 18:28 ALT 14 U/L (7-52) 08/15/17 18:28 Alkaline Phosphatase 54 U/L (34-104) 08/15/17 18:28 Total Protein 8.7 g/dL (6.4-8.9) 08/15/17 18:28 Albumin 3.0 g/dL (3.2-5.2) L 08/15/17 18:28 Globulin 5.7 g/dL (2-4) H 08/15/17 18:28 Albumin/Globulin Ratio 0.5 (1-3) L 08/15/17 18:28 TSH 2.85 mcIU/mL (0.34-5.60) 08/15/17 18:28 Urine Color Yellow 08/18/17 16:15 Urine Appearance Clear 08/18/17 16:15 Urine pH 5.0 (5-9) 08/18/17 16:15 Ur Specific [place] 1.012 (1.010-1.030) 08/18/17 16:15 Urine Protein Negative (Negative) 08/18/17 16:15 Urine Ketones Negative (Negative) 08/18/17 16:15 Urine Blood 1+ (Negative) H 08/18/17 16:15 Urine Nitrate Negative (Negative) 08/18/17 16:15 Urine Bilirubin Negative (Negative) 08/18/17 16:15 Urine Urobilinogen Negative (Negative) 08/18/17 16:15 Ur Leukocyte Esterase Trace (Negative) H 08/18/17 16:15 Urine WBC (Auto) 1+(6-10/hpf) (Absent) H 08/18/17 16:15 Urine RBC (Auto) 1+(3-5/hpf) (Absent) H 08/18/17 16:15 Ur Squamous Epith Cells Present (Absent) H 08/18/17 16:15 Ur Renal Epithelial Cell Present (Absent) H 08/15/17 21:05 Urine Bacteria 1+ (Absent) H 08/18/17 16:15 Hyaline Casts Present (Absent) H 08/15/17 21:05 Urine Glucose Negative (Negative) 08/18/17 16:15 Digoxin 0.9 ng/ml (0.8-2.0) 08/15/17 18:28 Valproic Acid 89.0 mcg/mL (50-100) 08/19/17 05:38 Blood Type A Positive 08/20/17 05:42 Antibody Screen Negative 08/20/17 05:42 Antibody ID (Elution) Cancelled 08/18/17 19:08 Crossmatch See Detail 08/20/17 05:42 Transfusion React Rpt 08/20/17 18:15 Donor Unit # [id number] 08/20/17 18:15 Post-Trans Blood Type A Positive 08/20/17 18:15 Post-Trans TEZ 2+ 08/20/17 18:15 Reaction Interpretation 08/20/17 18:15 General: Cooperative, follows commands inconsistently. Confused specifically about family members coming to visit. PRBC hanging currently. LLE: Dressing is CDI with no erythema surrounding the dressing. Bilateral lower extremities: calves are supple and nontender without erythema, edema or palpable cords. Patient is able to wiggle toes. She is unable to follow direction to dorsiflex or plantarflex today. Sensation is intact to light touch throughout lower extremities. 1+ PT/DP pulses with brisk capillary refill of toes. Assessment: []POD 2 s/p ORIF of left periprosthetic femur fracture 08/20/17, Dr Staley. Plan: []WBAT PT/OT Spoke with hospitalist regarding anemia: 2 units PRBC were ordered and hung this morning. SNF once anemia is stable
[2017-08-22] MEDS: Aspirin EC Low Dose* 81 MG TAB.EC PO SCH (09:35)
[2017-08-22] MEDS: Heparin VIAL(*) 5000 UNITS/ML VIAL (FIVE THOUSAND) SUBCUT SCH ×2 (09:35→20:54)
[2017-08-22] MEDS: Atenolol TAB* 25 MG PO SCH ×2 (09:35→16:56)
[2017-08-22] MEDS: Divalproex DR TAB(*) 500 MG PO SCH ×2 (09:35→20:55)
[2017-08-22] MEDS ORDERED: NS 0.9% 1000 ML* 1,000 ML IV SCH (10:31)
--- NOTE | 2017-08-22 10:33 | PN ---
Subjective Date of Service: 08/22/17 Interval History: Patient seen this morning. Denies any complaints. Seems a little confused, tells me she is in the hospital and that she is here for a stroke although seemed to recall leg fx once reminded. Denies SOB or pain at the moment. As per nursing no clear bleeding noted. Family History: Unchanged from Admission Social History: Unchanged from Admission Past Medical History: Unchanged from Admission Objective Active Medications: Acetaminophen (Tylenol Tab*) 650 mg PO Q4H PRN Aspirin (Aspirin Ec Low Dose*) 81 mg PO DAILY MAKEDA Atenolol (Tenormin Tab*) 12.5 mg PO QAM MAKEDA Atenolol (Tenormin Tab*) 25 mg PO QPM MAKEDA Digoxin (Lanoxin Tab*) 0.125 mg PO EVERY OTHER DAY@1700 MAKEDA Digoxin (Lanoxin Tab*) 0.25 mg PO EVERY OTHER DAY@1700 MAKEDA Diphenhydramine HCl (Benadryl Iv*) 25 mg IV Q6H PRN Divalproex Sodium (Depakote Dr Tab(*)) 500 mg PO BID MAKEDA Docusate Sodium (Colace Cap*) 100 mg PO BID PRN Heparin Sodium (Porcine) (Heparin Vial(*)) 5,000 units SUBCUT Q12HR MAKEDA Ceftriaxone Sodium 1,000 mg/ (Sodium Chloride) 50 mls @ 200 mls/hr IVPB Q24H MAKEDA Sodium Chloride (Ns 0.9% 1000 Ml*) 1,000 mls @ 100 mls/hr IV PER RATE MAKEDA Magnesium Hydroxide (Milk Of Magnesia Liq*) 30 ml PO Q6H PRN Morphine Sulfate (Morphine Inj (Syringe)*) 2 mg IV Q2H PRN Ondansetron HCl (Zofran Inj*) 4 mg IV Q4H PRN Ondansetron HCl (Zofran Inj*) 4 mg IV Q6H PRN Oxycodone HCl (Roxycodone Tab*) 2.5 mg PO Q4H PRN Polyethylene Glycol/Electrolytes (Miralax*) 17 gm PO DAILY PRN Vital Signs 08/21/17 08/21/17 08/21/17 10:45 10:50 12:09 Temperature 98.2 F Pulse Rate 62 62 Respiratory 16 16 Rate Blood Pressure 100/48 100/48 (mmHg) O2 Sat by Pulse 93 94 Oximetry 08/22/17 08/22/17 09:15 09:30 Temperature 97.3 F Pulse Rate 77 Respiratory 18 Rate Blood Pressure 116/25 (mmHg) O2 Sat by Pulse 88 92 Oximetry Oxygen Devices in Use Now: Nasal Cannula - 3L Appearance: Elderly, F, laying in bed in NAD Eyes: No Scleral Icterus Ears/Nose/Mouth/Throat: - - Dry MM Neck: NL Appearance and Movements; NL JVP Respiratory: Symmetrical Chest Expansion and Respiratory Effort, - - Diminished in bases, otherwise clear Cardiovascular: NL Sounds; No Murmurs; No JVD, RRR Abdominal: NL Sounds; No Tenderness; No Distention Lymphatic: No Cervical Adenopathy Extremities: No Edema, - - L hip with dressing in place, c/d/i Neurological: - - Fatigued, oriented to self and place, able to wiggle toes in LLE Result Diagrams: 08/22/17 06:01 08/22/17 06:01 Additional Lab and Data: . Microbiology and Other Data: . Assess/Plan/Problems-Billing 87 yo F PMH afib (not on anticoagulation), seizure disorder(depakote) and likely mild cognitive impairment who presented to the ER after falling at home( unwitnessed, ?seizure) and was found to have a left periprosthetic femur fracture. Course c/b JOLENE(improving), hyperkalemia, possible partial seizures, anemia, ?transfusion reaction. Rt basilar infiltrate on CXR. Cftx, azithromycin. - Patient Problems (1) Anemia Current Visit: Yes Comment: Hgb down to 6.1 this morning. No clear evidence of bleeding, likely related to surgery. Will transfuse 2 units. Sharon, TEZ weakly positive. Spoke with Dr. Baca who states patient likely has clinically insignificant auto-antibody and we should transfuse as needed as with any other patient. (2) Periprosthetic fracture of shaft of femur Current Visit: Yes SNOMED Code(s): 737071071 Comment: Appreciate Ortho assistance, s/p ORIF on 08/20. Continue pain control. She will likely need STR prior to going back home. (3) JOLENE (acute kidney injury) Current Visit: Yes Comment: Creatinine improved with increase in IVF, with blood transfusion today will try to decrease fluids and see if patient can maintain hydration. (4) Hyperkalemia Current Visit: Yes Status: Acute Code(s): E87.5 - HYPERKALEMIA SNOMED Code (s): 69314627 Comment: Resolved (5) Seizure disorder Current Visit: Yes Comment: Continue depakote but reduce back to 500mg bid appreciate Neuro recs. no additional agent (may be triggered by infection/trauma) (6) Hypertension Current Visit: Yes Comment: Continue atenolol with hold parameters (7) Paroxysmal a-fib Current Visit: Yes Comment: Currently in NSR. Pt has pacer (Medtronic VEDRO1 in Ratrium, Rventricle). Continue digoxin. Hold parameters placed on atenolol. Pt is not on anticoagulation at baseline. (8) Lung infiltrate Current Visit: Yes Comment: Continue CTX for potential CAP (Day 7). supplemental oxygen prn. sputum cx if starts to cough (has not been). s/p azithromycin. (9) DVT prophylaxis Current Visit: Yes Status: Acute Code(s): [id number] - SNOMED Code(s): 807867696 Comment: SQ heparin Status and Disposition: medicine inpatient. OR on 08/20 for ORIF. SNF once anemia stable.
[2017-08-22] MEDS: cefTRIAXone VIAL(*) 1,000 MG in NS 0.9% 50 ML* 50 ML IVPB SCH (12:05)
[2017-08-22 16:17] LABS: Free Valproic Acid 29 mcg/mL (5 - 25); Total Valproic Acid 88 mcg/mL (50 - 125)
[2017-08-22] MEDS: Digoxin TAB* 0.25 MG PO SCH (16:56)
[2017-08-23 08:19] LABS: Hematocrit 29 % (35-47); Hemoglobin 9.8 g/dl (12.0-16.0); Mean Corpuscular HGB Conc 34 g/dl (31-36); Mean Corpuscular Hemoglobin 30 pg (27-31); Mean Corpuscular Volume 88 fL (80-97); Mean Platelet Volume 9 um3 (7.4-10.4); Red Blood Count 3.29 10^6/ul (4.0-5.4); Red Cell Distribution Width 17 % (10.5-15); White Blood Count 10.1 10^3/ul (3.5-10.8)
[2017-08-23 08:36] LABS: BUN/Creatinine Ratio 31.5 (8-20); Calcium 8.6 mg/dL (8.6-10.3); EGFR African American 74.4 (>60); EGFR Non-African American 57.9 (>60)
--- NOTE | 2017-08-23 08:49 | PN ---
Progress Note - Progress Note Date of Service: 08/23/17 SOAP: Subjective: []Patient seen at bedside. Minimally responsive to questions and commands today. She denies any pain over the operative site or of the left leg. Objective: []General: Groaning, opens eyes to spoken voice. LLE: Surgical incision is clean, dry, intact. No erythema of wound edges and no discharge. Dressed in sterile fashion. Bilateral lower extremities: Calves are supple, no obvious tenderness, no palpable cords, no erythema or edema. DP/PT pulses 2+ and symmetric. Brisk capillary refill distally. Cannot follow commands to dorsiflex or plantarflex. Assessment: []s/p ORIF Left periprosthetic femur fracture acute bloodloss anemia Plan: []WBAT H&H much improved following PRBC yesterday Anticipate ASA 325 mg QD for DVT/PE prophylaxis on D/C. Will be d/c by hospitalist service tentatively today. Laboratory Last Values WBC 10.1 10^3/ul (3.5-10.8) 08/23/17 07:52 RBC 3.29 10^6/ul (4.0-5.4) L 08/23/17 07:52 Hgb 9.8 g/dl (12.0-16.0) L 08/23/17 07:52 Hct 29 % (35-47) L 08/23/17 07:52 MCV 88 fL (80-97) 08/23/17 07:52 MCH 30 pg (27-31) 08/23/17 07:52 MCHC 34 g/dl (31-36) 08/23/17 07:52 RDW 17 % (10.5-15) H 08/23/17 07:52 Plt Count 158 10^3/ul (150-450) 08/23/17 07:52 MPV 9 um3 (7.4-10.4) 08/23/17 07:52 Neut % (Auto) 75.4 % (38-83) 08/23/17 07:52 Lymph % (Auto) 13.0 % (25-47) L 08/23/17 07:52 [place] % (Auto) 10.0 % (1-9) H 08/23/17 07:52 Eos % (Auto) 1.4 % (0-6) 08/23/17 07:52 Baso % (Auto) 0.2 % (0-2) 08/23/17 07:52 Absolute Neuts (auto) 7.6 10^3/ul (1.5-7.7) 08/23/17 07:52 Absolute Lymphs (auto) 1.3 10^3/ul (1.0-4.8) 08/23/17 07:52 Absolute Monos (auto) 1.0 10^3/ul (0-0.8) H 08/23/17 07:52 Absolute Eos (auto) 0.1 10^3/ul (0-0.6) 08/23/17 07:52 Absolute Basos (auto) 0 10^3/ul (0-0.2) 08/23/17 07:52 Absolute Nucleated RBC 0.01 10^3/ul 08/23/17 07:52 Nucleated RBC % 0.1 08/23/17 07:52 INR (Anticoag Therapy) 0.94 (0.89-1.11) 08/21/17 11:16 APTT 27.0 seconds (26.0-36.3) 08/21/17 11:16 Sodium 134 mmol/L (133-145) 08/23/17 07:52 Potassium 5.0 mmol/L (3.5-5.0) 08/23/17 07:52 Chloride 105 mmol/L (101-111) 08/23/17 07:52 Carbon Dioxide 26 mmol/L (22-32) 08/23/17 07:52 Anion Gap 3 mmol/L (2-11) 08/23/17 07:52 BUN 29 mg/dL (6-24) H 08/23/17 07:52 Creatinine 0.92 mg/dL (0.51-0.95) 08/23/17 07:52 Est GFR ( Amer) 74.4 (>60) 08/23/17 07:52 Est GFR (Non-Af Amer) 57.9 (>60) 08/23/17 07:52 BUN/Creatinine Ratio 31.5 (8-20) H 08/23/17 07:52 Glucose 82 mg/dL (70-100) 08/23/17 07:52 POC Glucose (mg/dL) 120 mg/dL (70-100) H 08/16/17 12:19 Lactic Acid 0.9 mmol/L (0.5-2.0) 08/15/17 18:28 Calcium 8.6 mg/dL (8.6-10.3) 08/23/17 07:52 Magnesium 1.9 mg/dL (1.9-2.7) 08/15/17 18:28 Total Bilirubin 0.20 mg/dL (0.2-1.0) 08/18/17 16:15 AST 24 U/L (13-39) 08/15/17 18:28 ALT 14 U/L (7-52) 08/15/17 18:28 Alkaline Phosphatase 54 U/L (34-104) 08/15/17 18:28 Total Protein 8.7 g/dL (6.4-8.9) 08/15/17 18:28 Albumin 3.0 g/dL (3.2-5.2) L 08/15/17 18:28 Globulin 5.7 g/dL (2-4) H 08/15/17 18:28 Albumin/Globulin Ratio 0.5 (1-3) L 08/15/17 18:28 TSH 2.85 mcIU/mL (0.34-5.60) 08/15/17 18:28 Urine Color Yellow 08/18/17 16:15 Urine Appearance Clear 08/18/17 16:15 Urine pH 5.0 (5-9) 08/18/17 16:15 Ur Specific [place] 1.012 (1.010-1.030) 08/18/17 16:15 Urine Protein Negative (Negative) 08/18/17 16:15 Urine Ketones Negative (Negative) 08/18/17 16:15 Urine Blood 1+ (Negative) H 08/18/17 16:15 Urine Nitrate Negative (Negative) 08/18/17 16:15 Urine Bilirubin Negative (Negative) 08/18/17 16:15 Urine Urobilinogen Negative (Negative) 08/18/17 16:15 Ur Leukocyte Esterase Trace (Negative) H 08/18/17 16:15 Urine WBC (Auto) 1+(6-10/hpf) (Absent) H 08/18/17 16:15 Urine RBC (Auto) 1+(3-5/hpf) (Absent) H 08/18/17 16:15 Ur Squamous Epith Cells Present (Absent) H 08/18/17 16:15 Ur Renal Epithelial Cell Present (Absent) H 08/15/17 21:05 Urine Bacteria 1+ (Absent) H 08/18/17 16:15 Hyaline Casts Present (Absent) H 08/15/17 21:05 Urine Glucose Negative (Negative) 08/18/17 16:15 Digoxin 0.9 ng/ml (0.8-2.0) 08/15/17 18:28 Valproic Acid 89.0 mcg/mL (50-100) 08/19/17 05:38 Free Valproic Acid 29 mcg/mL (5 - 25) H 08/20/17 05:42 Total Valproic Acid 88 mcg/mL (50 - 125) 08/20/17 05:42 Blood Type A Positive 08/20/17 05:42 Antibody Screen Negative 08/20/17 05:42 Antibody ID (Elution) Cancelled 08/18/17 19:08 Crossmatch See Detail 08/20/17 05:42 Transfusion React Rpt 08/20/17 18:15 Donor Unit # [id number] 08/20/17 18:15 Post-Trans Blood Type A Positive 08/20/17 18:15 Post-Trans TEZ 2+ 08/20/17 18:15 Reaction Interpretation 08/20/17 18:15 Vital Signs Temp 98.2 F 08/23/17 07:31 Pulse 69 08/23/17 07:31 Resp 16 08/23/17 07:31 BP 146/57 08/23/17 07:31 Pulse Ox 95 08/23/17 07:31
[2017-08-23] MEDS: Heparin VIAL(*) 5000 UNITS/ML VIAL (FIVE THOUSAND) SUBCUT SCH (09:52)
[2017-08-23] MEDS: Atenolol TAB* 25 MG PO SCH (09:53)
[2017-08-23] MEDS: Divalproex DR TAB(*) 500 MG PO SCH (09:53)
[2017-08-23] MEDS: Aspirin EC Low Dose* 81 MG TAB.EC PO SCH (09:53)
--- NOTE | 2017-08-23 14:18 | TRS ---
TRANSFER SUMMARY: DATE OF ADMISSION: 08/15/2017. DATE OF TRANSFER: 08/23/2017. TRANSFERRED TO: [facility]. PHYSICIAN AT [facility]: Cierra Waldrop MD. STATUS DURING HOSPITALIZATION: Inpatient. PRINCIPAL DISCHARGE DIAGNOSES: 1. Fall with left periprosthetic hip fracture, status post orthopedic surgery repair by Dr. Jaylen Staley on 08/19/17. 2. Additionally, patient also experienced acute blood loss anemia requiring packed red blood cell transfusion with appropriate increase in her hemoglobin which is 9.8 mg/dL at discharge. 3. Blood transfusion reaction - currently stable. 4. Left lower lung infiltrate/Pneumonia requiring antibiotics - present on admission. 5. Acute renal failure with resolution of creatinine over multiple days and assuredly acute tubular necrosis (ATN). 6. Hyperkalemia at discharge. 7. Seizure disorder with likely decrease in seizure threshold relating to pneumonia/anemia. SECONDARY DIAGNOSES: 1. Hyperkalemia pursuant to acute renal failure - resolved. 2. Seizure disorder at baseline. 3. Hypertension. 4. Paroxysmal atrial fibrillation - currently in normal sinus rhythm. 5. Pacemaker in situ for sick sinus syndrome. 6. Mild cognitive impairment. DISCHARGE MEDICATION REGIMEN: 1. Aspirin 81 mg per mouth daily. 2. Atenolol 25 mg per mouth in the evening and 12.5 mg per mouth in the morning. 3. Digoxin 0.125 mg per mouth every other day alternating with 0.25 mg per mouth daily. 4. Divalproic acid/Depakote ER 500 mg per mouth twice daily. HISTORY OF PRESENT ILLNESS AND HOSPITAL COURSE: Please see the H and P by Dr. Michael Arreola on 08/15/2017 as well as the orthopedic surgery consultation by Dr. Jaylen Staley on the same date. In brief, Ms. Nieves is a 87-year-old female brought to the hospital by [facility] [employer] after a fall that was unwitnessed. Patient has a notable past medical history and seizure disorder, stroke, tachy-pat syndrome with pacemaker placement, atrial fibrillation - currently not on anticoagulation - who suffered an unwitnessed fall. The patient has cognitive impairment. She lives at [facility]. She was not able to give a clear history. Her son was present during the initial stages of the hospitalization who provided much of her medical history. custodial notes were also a good source of information. The patient remembered vaguely waking up on the morning of admission, getting dressed and walking to the kitchen. The patient then remembers being on the ground with left leg pain and was unable to get up. There were no accompanying symptoms. The patient does have history of seizure disorder, but cannot remember the last time she had a seizure. The patient was admitted by the medicine service and followed closely by Orthopedics. The patient was diagnosed with a left lower lobe infiltrate and pneumonia and started on IV antibiotics. She was also seen by Neurology with respect to her potential for seizure. The patient did not have her Depakote dose changed. The patient's Depakote levels were never concerning. The patient remained on aspirin during the hospitalization. She was transfused , though the patient was not on anticoagulation. The patient had an appropriate bump in her hemoglobin and did have a transfusion reaction which was mild and there were no contraindications to further transfusions if necessary. Pathology (blood bank) was consulted for this question. The patient did have intermittent hyperkalemia pursuant to her acute renal failure. The patient's creatinine peaked at 1.43 and is down to 0.92 at the point of discharge. This corresponded with a GFR decline to as low as 34 with her GFR almost 60 at this point; certainly representing a meaningful decrement in her glomerular filtration rate. The patient is doing well postop since her surgery on 08/19/17. She did have a total of 4 units of packed red blood cells and again her discharge hemoglobin is 9.8. She is being transported back to [facility] today. She can continue her medications as detailed above. If she has any worrisome symptoms, she can be transported back to the hospital for further evaluation. Total time taken to discharge of Ms. Nieves was 45 minutes, greater than half the time spent at the bedside going over the discharge process and coordinating plan of care with the nursing staff. [id number]/[facility] #: [id number] HIGINIO
[2017-08-23 15:28] VITALS: BP 140/46
[2017-08-23] MEDS: Digoxin TAB* 0.125 MG PO SCH (15:28)
== END 2017-08-23 16:14 | DRG 308 ==
LOC: ED 17:37 → SSU 21:08 → ICU 08-20 20:15 → SSU 08-21 10:54
PROVIDERS: ADMIT Hospitalist; ATTEND Internal Medicine
PROC: 30233N1 Transfusion of Nonautologous Red Blood Cells into Peripheral Vein, Percutaneous Approach (ICD-10-PCS; 2017-08-18)
PROC: 4A00X4Z Measurement of Central Nervous Electrical Activity, External Approach (ICD-10-PCS; 2017-08-18)
PROC: 4B02XSZ Measurement of Cardiac Pacemaker, External Approach (ICD-10-PCS; 2017-08-20)
PROC: 0QS904Z Reposition Left Femoral Shaft with Internal Fixation Device, Open Approach (ICD-10-PCS; principal; 2017-08-20 19:00)
DX: S72.302A Unspecified fracture of shaft of left femur, initial encounter for closed fracture (principal); J18.9 Pneumonia, unspecified organism; N17.9 Acute kidney failure, unspecified; E87.5 Hyperkalemia; I11.0 Hypertensive heart disease with heart failure; M97.02XA Periprosthetic fracture around internal prosthetic left hip joint, initial encounter; I48.0 Paroxysmal atrial fibrillation; I95.9 Hypotension, unspecified; I50.9 Heart failure, unspecified; D62 Acute posthemorrhagic anemia; G40.909 Epilepsy, unspecified, not intractable, without status epilepticus; Z95.0 Presence of cardiac pacemaker; W18.39XA Other fall on same level, initial encounter; E78.00 Pure hypercholesterolemia, unspecified; K21.9 Gastro-esophageal reflux disease without esophagitis; Z86.73 Personal history of transient ischemic attack (TIA), and cerebral infarction without residual deficits; Z98.49 Cataract extraction status, unspecified eye; Z96.653 Presence of artificial knee joint, bilateral; Z91.012 Allergy to eggs; Z87.891 Personal history of nicotine dependence; Z66 Do not resuscitate; Z82.49 Family history of ischemic heart disease and other diseases of the circulatory system; Y79.2 Prosthetic and other implants, materials and accessory orthopedic devices associated with adverse incidents; B85.0 Pediculosis due to Pediculus humanus capitis; T80.89XA Other complications following infusion, transfusion and therapeutic injection, initial encounter; R41.0 Disorientation, unspecified; G31.84 Mild cognitive impairment of uncertain or unknown etiology; Z79.82 Long term (current) use of aspirin; Y92.129 Unspecified place in nursing home as the place of occurrence of the external cause
CPT/HCPCS: 36415; 70450; 71010; 72125; 72170; 76000; 80048; 80053; 80162; 80164; 80165; 81003; 81015; 82247; 82565; 83605; 83735; 84443; 84520; 85014; 85018; 85025; 85027; 85610; 85730; 86078; 86850; 86860; 86870; 86880; 86900; 86901; 86922; 87077; 87086; 93005; 94760; 95816; A9270-GY; C1713; C1776; G0480; J0456; J0690; J0696; J1100; J1644; J1940; J2250; J2270; J2405; J2704; J3010; P9040